=== PATIENT | female | born 1990 | race Caucasian/White ===

== ENCOUNTER → 2016-11-07 | Outpatient (CLI) | payer OTHER ==
[2016-11-07 12:08] LABS: CHCM 31.5; HCT 33.6 % (34.0-46.0); HDW 2.64; HGB 10.3 gm/dL (11.4-16.0); Hypochromasia Slight; MCH 26.3 pg (25.0-35.0); MCHC 30.6 g/dL (31.0-37.0); MCV 85.9 fL (80.0-100.0); RDW 15.2 % (11.5-15.5); WBC 11.2 k/uL (3.8-10.6)
== END | disposition home or self-care (01) ==
LOC: LABWHC1 10:36
PROVIDERS: ATTEND Obstetrics & Gynecology
DX: Z34.82 Encounter for supervision of other normal pregnancy, second trimester (principal); Z3A.00 Weeks of gestation of pregnancy not specified
CPT/HCPCS: 36415; 82950; 85027

== ENCOUNTER → 2016-12-26 | Outpatient (CLI) | payer OTHER ==
[2016-12-26 08:12] LABS: Bilirubin, Delta 0.6 mg/dL (0.0-0.2); Total Bilirubin 0.9 mg/dL (0.2-1.3); Total Protein 6.2 g/dL (6.3-8.2)
== END ==
LOC: LABWHC1 07:25
PROVIDERS: ATTEND Obstetrics & Gynecology
DX: O26.619 Liver and biliary tract disorders in pregnancy, unspecified trimester (principal)
CPT/HCPCS: 36415; 80076; 82239

== ENCOUNTER → 2017-01-15 | Outpatient (CLI) | payer OTHER ==
[2017-01-15 09:08] LABS: CH 24.7; CHCM 30.3; HCT 31.5 % (34.0-46.0); HDW 3.14; Hypochromasia Marked; MCH 25.9 pg (25.0-35.0); MCHC 31.8 g/dL (31.0-37.0); MCV 81.5 fL (80.0-100.0); Mean Platelet Volume 7.1; RBC 3.87 m/uL (3.80-5.40); RDW 14.6 % (11.5-15.5); WBC 15.7 k/uL (3.8-10.6)
== END | disposition home or self-care (01) ==
LOC: LABWHC1 08:32
PROVIDERS: ATTEND Obstetrics & Gynecology
DX: O26.619 Liver and biliary tract disorders in pregnancy, unspecified trimester (principal); Z3A.00 Weeks of gestation of pregnancy not specified
CPT/HCPCS: 36415; 84450; 84460; 84550; 85027

== ENCOUNTER 2017-01-24 13:20 | Outpatient (CLI) | payer OTHER ==
[2017-01-24 13:59] VITALS: BP 136/69; PULSE 112; RESP 20; TEMP 97.1
--- NOTE | 2017-01-27 20:43 | P.MSEPDOC ---
Presenting Problems - Arrival Data Date of Arrival on Unit: 01/24/17 Time of Arrival on Unit: 13:20 Mode of Transport: Ambulatory - Complaint OB-Reason for Admission/Chief Complaint: Rule Out PROM Medical History - Information : 3 Para: 1 Term: 1 : 0 Abortions: Spontaneous or Elective: 1 Number of Living Children: 1 - Gestational Age Expected Date of Delivery: 02/25/17 Gestational Age by DANE (wks/days): 35 Weeks and 6 Days - History Complications: Prior Comment: Scheduled for february 05 Review of Systems - Review of Systems Constitutional: No problems Breast: No problems ENT: No problems Cardiovascular: No problems Respiratory: No problems Gastrointestinal: No problems Genitourinary: No problems Musculoskeletal: No problems Neurological: No problems Skin: No problems Vital Signs - Temperature Temperature: 97.1 F Temperature Source: Skin - Pulse Brachial Pulse Rate: 112 Pulse Assessment Method: Automatic Cuff - Respirations Respiratory Rate: 20 Oxygen Delivery Method: Room Air O2 Sat by Pulse Oximetry: 98 - Blood Pressure Right Arm Blood Pressure: 136/69 Blood Pressure Mean: 91 Blood Pressure Source: Automatic Cuff Medical Screen Scoring (Pre) - Cervical Exam Dilation: 0 cm = 0 - Uterine Contractions Frequency: N/A - Maternal Vital Signs Maternal Temperature: N/A Maternal Blood Pressure: N/A Signs of Preeclampsia: N/A Maternal Respirations: N/A - Maternal Trauma Maternal Trauma: N/A - Assessment Baseline FHR: 145 Heart Rate - NICHD Category: Category I (Normal) = 0 NST: Reactive Position: N/A Station: N/A - Total Score Total Score (Pre): 0 Physician Notification (Pre) - Physician Notified Physician Notified Date: 01/24/17 Physician Notified Time: 14:13 Physician/Practitioner Notifed:: cecile Medical Screen Scoring (Post) - Cervical Exam Dilation: 0 cm = 0 - Uterine Contractions Frequency: N/A - Assessment Heart Rate - NICHD Category: Category I (Normal) = 0 - Total Score Total Score (Post): 0 - Post Treatment Level of Risk Post Treatment Level of Risk: Low (0-5) Physician Notification (Post) - Physician Notified Physician Notified Date: 01/24/17 Physician Notified Time: 14:16 Physician/Practitioner Notified:: cecile New Order Received: Yes - Notification Comment Comment: discharge home Disposition - Disposition OB Disposition: Discharge to home Discharge Date: 01/24/17 Discharge Time: 14:41 I agree with the RN Medical Screening Exam: Yes Risk & Benefit of care provided described in d/c instruction: Yes Diagnosis: FALSE LABOR AT OR AFTER 37 COMPLETED WEEKS OF GESTATION
== END 2017-01-24 14:42 | disposition home or self-care (01) ==
LOC: FBPOP 13:20
PROVIDERS: ATTEND Obstetrics & Gynecology
DX: O47.1 False labor at or after 37 completed weeks of gestation (principal); Z3A.35 35 weeks gestation of pregnancy
CPT/HCPCS: 59025; 84112; G0463; 99213

== ENCOUNTER 2017-02-05 05:06 | Inpatient (IN) | payer OTHER ==
[2017-01-31 14:20] VITALS: BMI 50.1
--- NOTE | 2017-02-04 16:22 | P.HPOB ---
History of Present Illness H&P Date: 02/04/17 Chief Complaint: repeat with TL 26 year old presents at 37 weeks 2 days for repeat low transverse c- section with tubal ligation. Pt has gestational diabetes A2 as well as cholestasis of . She is being delivered at 37 weeks due to the cholestasis. Review of Systems All systems: negative Constitutional: Denies chills, Denies fever Eyes: denies blurred vision, denies pain Ears, nose, mouth and throat: Denies headache, Denies sore throat Cardiovascular: Denies chest pain, Denies shortness of breath Respiratory: Denies cough Gastrointestinal: Denies abdominal pain, Denies diarrhea, Denies nausea, Denies vomiting Genitourinary: Denies dysuria, Denies hematuria Musculoskeletal: Denies myalgias Integumentary: Denies pruritus, Denies rash Neurological: Denies numbness, Denies weakness Psychiatric: Denies anxiety, Denies depression Endocrine: Denies fatigue, Denies weight change Past Medical History Past Medical History: Asthma, Diabetes Mellitus, GERD/Reflux Additional Past Medical History / Comment(s): GESTATIONAL DIABETES., SCOLIOSIS, STATES SCRATCH [place] ON LEGS FROM SCRATCHING. History of Any Multi-Drug Resistant Organisms: None Reported, MRSA Date of last positivie culture/infection: 2010 MDRO Source:: MRSA on the Back Past Surgical History: Section, Tonsillectomy Additional Past Surgical History / Comment(s): MRSA REMOVED FROM BACK. Past Anesthesia/Blood Transfusion Reactions: No Reported Reaction Past Psychological History: ADD/ADHD, Bipolar Smoking Status: Former smoker Past Alcohol Use History: None Reported, Rare Additional Past Alcohol Use History / Comment(s): SMOKED FOR 1 YEAR FROM 2008 - 2009, 1-2 CIGARETTES PER DAY., Past Drug Use History: None Reported - Past Family History Father Family Medical History: Diabetes Mellitus Medications and Allergies Home Medications Medication Instructions Recorded Confirmed Type Albuterol Inhaler [Ventolin Hfa 1 - 2 puff INHALATION DIRECTED 01/17/1701/31 History Inhaler] PRN Insulin Glargine [Lantus] 24 unit SQ QAM 01/17/17 01/31/17 History Insulin Glargine [Lantus] 36 unit SQ HS 01/17/17 01/31/17 History Insulin Aspart [NovoLOG Flexpen] 12 units SQ BID-W/MEALS 01/31/17 01/31/17 History Insulin Aspart [NovoLOG Flexpen] 16 units SQ AC-SUPPER 01/31/17 01/31/17 History Pediatric Multivitamin Comb#30 1 each PO DAILY 01/31/17 01/31/17 History [Multivitamin Children's Gummies] Tylenol 200 Mg 200 mg PO BID PRN 01/31/17 History Ursodiol 300 mg PO TID-W/MEALS 01/31/17 01/31/17 History Allergies Allergy/AdvReac Type Severity Reaction Status Date / Time methocarbamol [From Robaxin] AdvReac Rapid Verified 01/31/17 13:50 Heart Rate tramadol AdvReac Rapid Verified 01/31/17 13:50 Heart Rate Exam Osteopathic Statement: *. No significant issues noted on an osteopathic structural exam other than those noted in the History and Physical/Consult. HEart: RRR Lungs: CTAB ABdomen: soft, nontender Extremeties: neg nicole's Assessment and Plan (1) Previous section Status: Acute (2) Gestational diabetes mellitus, class A2 Status: Acute (3) Cholestasis during Status: Acute (4) Family planning Status: Acute Plan: 1. repeat low transverse with tubal ligation
[2017-02-05] MEDS ORDERED: ceFAZolin 2 GM in SODIUM CHLORIDE 0.9% 100 ML IVPB ONE (05:24)
[2017-02-05] MEDS ORDERED: CITRIC ACID-SODIUM CITRATE 15 ML CUP PO ONE (05:24)
[2017-02-05 05:49] LABS: Glucose,Whole Blood 101 mg/dL (75-99)
[2017-02-05 05:59] LABS: Basophils % (A) 0 %; CH 24.2; CHCM 30.8; Eosinophils # (A) 0.2 k/uL (0-0.7); Eosinophils % (A) 2 %; HCT 30.1 % (34.0-46.0); HDW 3.25; HGB 9.5 gm/dL (11.4-16.0); Hypochromasia Marked; Luc # (Auto) 0.21; Luc % (Auto) 2; Lymphocytes # (A) 2.3 k/uL (1.0-4.8); Lymphocytes % (A) 17 %; MCH 24.9 pg (25.0-35.0); MCHC 31.6 g/dL (31.0-37.0); MCV 78.7 fL (80.0-100.0); Mean Platelet Volume 7.3; Monocytes # (A) 0.6 k/uL (0-1.0); Monocytes % (A) 4 %; Neutrophils # (A) 10.5 k/uL (1.3-7.7); Neutrophils % (A) 76 %; RBC 3.83 m/uL (3.80-5.40); RDW 15.3 % (11.5-15.5); WBC 13.9 k/uL (3.8-10.6); WBC (Perox) 14.21
[2017-02-05] MEDS: LACTATED RINGERS 1,000 ML IV SCH ×4 (07:21→17:16)
[2017-02-05] MEDS ORDERED: ONDANSETRON 4 MG/2 ML VIAL ONE (08:03)
[2017-02-05] MEDS ORDERED: LACTATED RINGERS 1,000 ML BAG IV ONE (08:03)
[2017-02-05] MEDS ORDERED: OXYTOCIN 10 UNIT/ML 1 ML VIAL ONE (08:03)
[2017-02-05] MEDS ORDERED: ePHEDrine 50 MG/ML 1 ML AMP ONE (08:03)
[2017-02-05] MEDS ORDERED: MORPHINE SULFATE (PF) 0.3 MG/0.3 ML SYR ONE (08:03)
[2017-02-05] MEDS ORDERED: KETOROLAC 30 MG/ML 1 ML VIAL ONE (08:03)
[2017-02-05] MEDS ORDERED: MIDAZOLAM 2 MG/2 ML VIAL ONE (08:03)
[2017-02-05 08:22] LABS: Hemoglobin A1C 6.5 % (4.2-6.1)
[2017-02-05] MEDS ORDERED: diphenhydrAMINE 50 MG/ML 1 ML VIAL IVP PRN ×2 (08:38)
[2017-02-05] MEDS ORDERED: diphenhydrAMINE 50 MG CAP PO PRN (08:38)
[2017-02-05] MEDS ORDERED: Acetaminophen-Codeine 300-30mg TAB PO PRN (08:38)
[2017-02-05] MEDS ORDERED: diphenhydrAMINE 25 MG CAP PO PRN (08:38)
[2017-02-05] MEDS ORDERED: METOCLOPRAMIDE 5 MG/ML 2 ML VIAL IVP PRN (08:38)
[2017-02-05] MEDS ORDERED: ZOLPIDEM 5 MG TAB PO PRN (08:38)
[2017-02-05] MEDS ORDERED: SIMETHICONE 80 MG CHEWABLE PO PRN (08:38)
[2017-02-05] MEDS ORDERED: ONDANSETRON 4 MG/2 ML VIAL IVP PRN (08:38)
[2017-02-05] MEDS ORDERED: NALOXONE 0.4 MG/ML 1 ML VIAL IV PRN (08:38)
[2017-02-05] MEDS ORDERED: LANOLIN CREAM 5 GM TUBE TOPICAL PRN (08:38)
[2017-02-05] MEDS ORDERED: ACETAMINOPHEN TAB 325 MG TAB PO PRN (08:38)
--- NOTE | 2017-02-05 08:43 | P.OP ---
Date of Procedure: 02/05/17 Preoperative Diagnosis: 1. at 37 weeks and 2 days 2. Cholestasis of 3. Gestational diabetes A2 4. Previous 5. Family planning Postoperative Diagnosis: 1. at 37 weeks and 2 days 2. Cholestasis of 3. Gestational diabetes A2 4. Previous 5. Family planning Procedure(s) Performed: Repeat low transverse with tubal ligation Anesthesia: spinal Surgeon: Lili Dent Motion Study Engineer #1: Elise Bueno Estimated Blood Loss (ml): 800 IV fluids (ml): 700 Urine output (ml): 100 Pathology: other (Placenta) Condition: stable Disposition: floor Operative Findings: Viable female, Apgars 8, 9, weight 6 lbs. 9 oz. normal uterus tubes and ovaries. Description of Procedure: Patient was taken to the operating room where spinal anesthesia was found be adequate. She was prepped and draped in normal sterile fashion in dorsal supine position with a leftward tilt. Pfannenstiel skin incision was made the scalpel and carried through to the underlying layer of fascia with the scalpel. Fascia was incised in midline and carried bilaterally with the Coates scissors. The superior aspect of the fascial incision was grasped with Susan clamps elevated and the underlying rectus muscles dissected off with the Coates's. Attention was then turned to inferior aspect of same incision which in a similar fashion was grasped tented up and the underlying rectus muscles dissected off with the Coates's. The rectus muscles were the midline and the peritoneum was identified tented up and entered sharply with the scalpel. The incision was extended superiorly and inferiorly with good visualization of the bladder. The bladder blade was inserted and the vesicouterine peritoneum was incised the Metzenbaums then carried bilaterally and bladder flap created digitally. A low transverse incision was then made on the uterus with the scalpel. This was carried bilaterally and digital manner. 's head delivered atraumatically, nose and mouth bulb suctioned, cord clamped and cut, handed off to waiting nurses. Apgars 8,9, weight 6 lbs. 9 oz. Placenta delivered manually, intact with three-vessel cord. The uterus is exteriorized and cleared of all clots and debris. The uterine incision was closed with 0 Vicryl in a running locked fashion. Second layer of the same sutures used in imbricating fashion to obtain excellent hemostasis. Both ovaries and tubes appeared normal. The left fallopian tube was grasped with a hemostat and a window was made in the mesosalpinx with the Bovie. The left fallopian tube was doubly ligated a section was removed. The pedicles were cauterized with the Bovie. The right fallopian tube was grasped with a hemostat and a window was made in the mesosalpinx with the Bovie. The right fallopian tube was doubly ligated and a section was removed. The pedicles were cauterized with the Bovie. The uterus was placed back into the abdomen. The peritoneum was reapproximated using 2-0 Vicryl in a running fashion. The muscles were reapproximated using 2-0 Vicryl in interrupted fashion. The fascia was reapproximated using 0 Vicryl in a running fashion. The subcutaneous tissues closed with 3-0 Vicryl running fashion. The skin was closed marvin. Patient tolerated the procedure well, sponge and instrument counts were correct times 2 and she was taken to the recovery room in stable condition.
[2017-02-05] MEDS ORDERED: OXYTOCIN 30 UNITS/500 ML NS 30 UNIT in SALINE 1 500ML.BAG IV SCH (08:45)
[2017-02-05] MEDS ORDERED: MEASLES-MUMPS-RUBELLA VACC/PF 12,500 UNIT/0.5 ML VIAL SQ ONE (12:17)
[2017-02-05] MEDS: KETOROLAC 30 MG/ML 1 ML VIAL IVP PRN ×2 (14:04→20:07)
[2017-02-05] MEDS: SENNOSIDES-DOCUSATE SODIUM 1 EACH TAB PO SCH (21:30)
[2017-02-06] MEDS: KETOROLAC 30 MG/ML 1 ML VIAL IVP PRN ×2 (03:47→11:10)
[2017-02-06 08:04] LABS: Basophils % (A) 0 %; CH 23.9; CHCM 30.1; Eosinophils # (A) 0.2 k/uL (0-0.7); Eosinophils % (A) 2 %; HCT 27.4 % (34.0-46.0); HGB 8.5 gm/dL (11.4-16.0); Hypochromasia Marked; Luc # (Auto) 0.21; Luc % (Auto) 2; Lymphocytes # (A) 2.1 k/uL (1.0-4.8); Lymphocytes % (A) 20 %; MCH 24.7 pg (25.0-35.0); MCV 79.6 fL (80.0-100.0); Monocytes # (A) 0.4 k/uL (0-1.0); Monocytes % (A) 3 %; Neutrophils # (A) 7.7 k/uL (1.3-7.7); Neutrophils % (A) 73 %; RBC 3.44 m/uL (3.80-5.40); RDW 15.4 % (11.5-15.5); WBC 10.6 k/uL (3.8-10.6); WBC (Perox) 11.01
[2017-02-06] MEDS: SENNOSIDES-DOCUSATE SODIUM 1 EACH TAB PO SCH ×2 (08:42→19:43)
--- NOTE | 2017-02-06 09:05 | P.PNOBGPC ---
Subjective - Subjective Principal diagnosis: Status post repeat low transverse with tubal ligation postop day1 Interval history: Patient seen and examined. Denies nausea, vomiting, fever, chills, chest pain, soreness of breath or calf pain. She was seen ambulating around her room without difficulty and she states she is voiding without problem. Passing flatus and tolerating a regular diet. Patient reports: Reports appetite normal, Reports voiding normally, Reports pain well controlled, Reports ambulating normally : doing well Objective - Vital Signs Latest vital signs: Vital Signs Temp Pulse Resp BP BP Pulse Ox 02/06/17 08:00 98.3 F 103 H 16 96/54 02/06/17 04:00 98.6 F 88 17 103/54 99 02/06/17 02:00 16 L 02/05/17 23:58 98.3 F 81 16 97/42 97 02/05/17 22:00 18 L 02/05/17 20:00 97.4 F L 84 18 90/60 97 02/05/17 16:00 98.9 F 81 16 92/57 98 02/05/17 13:15 98.4 F 90 16 102/50 95 02/05/17 11:00 96.8 F L 93 16 103/59 02/05/17 10:36 88 16 93/51 02/05/17 10:13 96.9 F L 82 16 97/50 02/05/17 09:39 90 16 94/49 97 02/05/17 09:16 100 18 96/51 99 Intake and Output 02/05/17 02/06/17 02/06/17 22:59 06:59 14:59 Output Total 475 200 Balance -475 -200 Output: Urine 475 200 Uretheral (Shea) 275 Other: Voiding Method Toilet # Voids 1 1 - Exam Lungs: bilateral: normal Chest: Normal S1, Normal S2 Extremities: Present: normal Abdomen: Present: normal appearance, soft. Absent: distention, tenderness Incision: Present: normal, dry, intact Uterus: Present: normal, firm - Labs Labs: Abnormal Lab Results - Last 24 Hours (Table) 02/06/17 Range/Units 07:52 RBC 3.44 L (3.80-5.40) m/uL Hgb 8.5 L (11.4-16.0) gm/dL Hct 27.4 L (34.0-46.0) % MCV 79.6 L (80.0-100.0) fL MCH 24.7 L (25.0-35.0) pg Assessment and Plan (1) Previous section Current Visit: Yes Status: Resolved Code(s): Z98.891 - HISTORY OF UTERINE SCAR FROM PREVIOUS SURGERY SNOMED Code(s): 861120211 (2) Gestational diabetes mellitus, class A2 Current Visit: Yes Status: Resolved Code(s): O24.414 - GESTATIONAL DIABETES IN , INSULIN CONTROLLED SNOMED Code(s): 75537737 (3) Cholestasis during Current Visit: Yes Status: Resolved Code(s): O26.619 - LIVER AND BILIARY TRACT DISORD IN , UNSP TRIMESTER; K83.1 - OBSTRUCTION OF BILE DUCT SNOMED Code(s): 833718131 (4) Family planning Current Visit: Yes Status: Resolved Code(s): Z30.09 - ENCOUNTER FOR OT GENERAL CNSL AND ADVICE ON CONTRACEPTION SNOMED Code(s): 00582704 (5) Status post repeat low transverse section Current Visit: Yes Status: Acute Code(s): Z98.891 - HISTORY OF UTERINE SCAR FROM PREVIOUS SURGERY SNOMED Code(s): 413711253 (6) Status post tubal ligation at time of delivery, current hosp Narrative/Plan: 1. Increase ambulation 2. Pain control Current Visit: Yes Status: Acute Code(s): O80 - ENCOUNTER FOR FULL-TERM UNCOMPLICATED DELIVERY; Z30.2 - ENCOUNTER FOR STERILIZATION SNOMED Code(s): 917041643
--- NOTE | 2017-02-06 10:21 | P.PN ---
Progress Note - Text 0749 Anesthesia POD 1. Patient is status post section and tubal ligation under spinal anesthesia with intra-thecal preservative free morphine 300 g. Minimal pruritus, good post-op analgesia, and no headache or other complication.
[2017-02-06] MEDS: Acetaminophen-Codeine 300-30mg TAB PO PRN ×2 (13:39→19:42)
[2017-02-06] MEDS: IBUPROFEN 600 MG TAB PO PRN ×2 (17:01→23:08)
[2017-02-06] MEDS: LACTATED RINGERS 1,000 ML IV SCH (22:03)
[2017-02-07] MEDS: Acetaminophen-Codeine 300-30mg TAB PO PRN ×3 (03:26→23:35)
[2017-02-07] MEDS: SENNOSIDES-DOCUSATE SODIUM 1 EACH TAB PO SCH ×2 (08:23→19:44)
[2017-02-07] MEDS: IBUPROFEN 600 MG TAB PO PRN ×2 (08:24→19:44)
--- NOTE | 2017-02-07 09:33 | P.PNOBGPC ---
Subjective - Subjective Principal diagnosis: Status post repeat low transverse with tubal ligation POD #2 Interval history: Patient seen and examined. Denies nausea, vomiting, fever, chills, chest pain, shortness of breath or calf pain Patient reports: Reports appetite normal, Reports voiding normally, Reports pain well controlled, Reports ambulating normally Cornell: doing well Objective - Vital Signs Latest vital signs: Vital Signs Temp Pulse Resp BP BP Pulse Ox 02/07/17 08:00 97.9 F 96 18 121/69 97 02/07/17 00:00 98.0 F 94 17 107/59 98 02/06/17 16:00 97.4 F L 87 16 98/54 - Exam Lungs: bilateral: normal Chest: Normal S1, Normal S2 Extremities: Present: normal Abdomen: Present: normal appearance, soft. Absent: distention, tenderness Incision: Present: normal, dry, intact Uterus: Present: normal, firm Assessment and Plan (1) Previous section Current Visit: Yes Status: Resolved Code(s): Z98.891 - HISTORY OF UTERINE SCAR FROM PREVIOUS SURGERY SNOMED Code(s): 218162045 (2) Gestational diabetes mellitus, class A2 Current Visit: Yes Status: Resolved Code(s): O24.414 - GESTATIONAL DIABETES IN , INSULIN CONTROLLED SNOMED Code(s): 13844907 (3) Cholestasis during Current Visit: Yes Status: Resolved Code(s): O26.619 - LIVER AND BILIARY TRACT DISORD IN , UNSP TRIMESTER; K83.1 - OBSTRUCTION OF BILE DUCT SNOMED Code(s): 300948042 (4) Family planning Current Visit: Yes Status: Resolved Code(s): Z30.09 - ENCOUNTER FOR OT GENERAL CNSL AND ADVICE ON CONTRACEPTION SNOMED Code(s): 35196624 (5) Status post repeat low transverse section Current Visit: Yes Status: Acute Code(s): Z98.891 - HISTORY OF UTERINE SCAR FROM PREVIOUS SURGERY SNOMED Code(s): 604308540 (6) Status post tubal ligation at time of delivery, current hosp Narrative/Plan: 1. Continue postoperative care Current Visit: Yes Status: Acute Code(s): O80 - ENCOUNTER FOR FULL-TERM UNCOMPLICATED DELIVERY; Z30.2 - ENCOUNTER FOR STERILIZATION SNOMED Code(s): 259105331
--- NOTE | 2017-02-08 07:25 | P.DS ---
Providers Date of admission: 02/05/17 05:06 Expected date of discharge: 02/08/17 Attending physician: Lili Dent Primary care physician: Bret Hussein - Discharge Diagnosis(es) (1) Previous section Current Visit: Yes Status: Resolved (2) Gestational diabetes mellitus, class A2 Current Visit: Yes Status: Resolved (3) Cholestasis during Current Visit: Yes Status: Resolved (4) Family planning Current Visit: Yes Status: Resolved (5) Status post repeat low transverse section Current Visit: Yes Status: Acute (6) Status post tubal ligation at time of delivery, current hosp Current Visit: Yes Status: Acute Hospital Course: Pt presented for RLTCS with TL. She underwent this procedure without complication. HEr postop course was uneventful. Denies N/V, F/C, CP, SOB, calf pain. Incision is C/D/I. Tolerating reg diet, passing flatus, voiding and ambulating. Patient will be discharged home postoperative day #3 in stable condition to follow-up with me in one week. Plan - Discharge Summary New Discharge Prescriptions: Acetaminophen-Codeine 300-30mg [Tylenol #3] 2 tab PO Q6H PRN #30 tablet PRN Reason: Pain Ibuprofen [Motrin] 600 mg PO Q6HR PRN #30 tab PRN Reason: Mild Pain Or Fever >= 100.5 Discharge Medication List Albuterol Inhaler [Ventolin Hfa Inhaler] 1 - 2 puff INHALATION DIRECTED PRN 01/17/17 [History] Insulin Glargine [Lantus] 24 unit SQ QAM 01/17/17 [History] Insulin Glargine [Lantus] 36 unit SQ HS 01/17/17 [History] Insulin Aspart [NovoLOG Flexpen] 12 units SQ BID-W/MEALS 01/31/17 [History] Insulin Aspart [NovoLOG Flexpen] 16 units SQ AC-SUPPER 01/31/17 [History] Pediatric Multivitamin Comb#30 [Multivitamin Children's Gummies] 1 each PO DAILY 01/31/17 [History] Ursodiol 300 mg PO TID-W/MEALS 01/31/17 [History] Acetaminophen-Codeine 300-30mg [Tylenol #3] 2 tab PO Q6H PRN #30 tablet [Rx] Ibuprofen [Motrin] 600 mg PO Q6HR PRN #30 tab 02/08/17 [Rx] Follow up Appointment(s)/Referral(s): Lili Dent DO [Doctor of Osteopathic Medicine] - 1 Week Discharge Disposition: HOME SELF-CARE
[2017-02-08 08:05] VITALS: BP 130/67; PULSE 93; RESP 20; TEMP 98.5
[2017-02-08] MEDS: SENNOSIDES-DOCUSATE SODIUM 1 EACH TAB PO SCH (08:06)
[2017-02-08] MEDS: Acetaminophen-Codeine 300-30mg TAB PO PRN (08:07)
== END 2017-02-08 11:25 | disposition home or self-care (01) | DRG 765 ==
LOC: 4FBP 05:06
PROVIDERS: ADMIT Obstetrics & Gynecology; ATTEND Obstetrics & Gynecology
PROC: 0UB70ZZ Excision of Bilateral Fallopian Tubes, Open Approach (ICD-10-PCS; 2017-02-05)
PROC: 3E0134Z Introduction of Serum, Toxoid and Vaccine into Subcutaneous Tissue, Percutaneous Approach (ICD-10-PCS; 2017-02-05)
PROC: 10D00Z1 Extraction of Products of Conception, Low, Open Approach (ICD-10-PCS; principal; 2017-02-05 08:00)
DX: O26.62 Liver and biliary tract disorders in childbirth (principal); K83.1 Obstruction of bile duct; O24.424 Gestational diabetes mellitus in childbirth, insulin controlled; M41.9 Scoliosis, unspecified; O34.211 Maternal care for low transverse scar from previous cesarean delivery; Z23 Encounter for immunization; Z30.2 Encounter for sterilization; Z3A.37 37 weeks gestation of pregnancy; Z37.0 Single live birth; O99.62 Diseases of the digestive system complicating childbirth; K21.9 Gastro-esophageal reflux disease without esophagitis; J45.909 Unspecified asthma, uncomplicated; O99.52 Diseases of the respiratory system complicating childbirth; O99.344 Other mental disorders complicating childbirth; F90.9 Attention-deficit hyperactivity disorder, unspecified type; Z86.14 Personal history of Methicillin resistant Staphylococcus aureus infection; Z87.891 Personal history of nicotine dependence; Z83.3 Family history of diabetes mellitus; Z79.4 Long term (current) use of insulin; Z79.899 Other long term (current) drug therapy
CPT/HCPCS: 83036; 85025; 86850; 86900; 86901; 88302; 88307; 90471; 90707

== ENCOUNTER → 2017-03-07 | Outpatient (CLI) | payer OTHER ==
--- NOTE | 2017-03-07 09:48 | XR ---
EXAMINATION TYPE: XR scoliosis survey DATE OF EXAM ORDERED: 03/07/2017 HISTORY: M41.9 scoliosis. COMPARISON: None. FINDINGS: There is a mild S-shaped scoliosis, convex to the right in the thoracic region and to the left in the lumbar region. De León's angle subtended 9 degrees in the thoracic region and 60 degrees in the lumbar region. No segmentation defects are seen. IMPRESSION: IDIOPATHIC SCOLIOSIS.
== END | disposition home or self-care (01) ==
LOC: RADXRMAIN 09:05
PROVIDERS: ATTEND Family Medicine
DX: M41.25 Other idiopathic scoliosis, thoracolumbar region (principal)
CPT/HCPCS: 72082

== ENCOUNTER → 2017-12-09 | Outpatient (CLI) | payer OTHER ==
--- NOTE | 2017-12-09 08:50 | US ---
EXAMINATION TYPE: US abdomen complete DATE OF EXAM: 12/09/2017 COMPARISON: US 2011 CLINICAL HISTORY: R94.5 Abnormal Liver function test. Abnormal results of liver function studies, pat ient states no symptoms EXAM MEASUREMENTS: Liver Length: 17.9 cm Gallbladder Wall: 0.2 cm CBD: 0.5 cm Spleen: 10.9 cm Right Kidney: 10.8 x 5.8 x 5.7 cm Left Kidney: 11.1 x 5.8 x 5.1 cm Difficult and limited study due to patient body habitus Pancreas: visualized portions wnl, limited by overlying midline bowel gas Liver: somewhat heterogeneous echogenicity, scanned intercostally, limited by rib shadowing Gallbladder: multiple small mobile echogenic foci, wall measures wnl Evidence for sonographic Jones's sign: no CBD: wnl Spleen: wnl Right Kidney: wnl Left Kidney: visualized portions wnl, limited by rib shadowing Upper IVC: wnl Abd Aorta: visualized portions wnl, distal limited by overlying midline bowel gas Exam noted suboptimal secondary to patient's large body habitus. The visualized liver is slightly heterogeneous. The intrahepatic portion of the IVC and visualized a bdominal aorta are within normal limits. There are shadowing mobile gallstones. There is no perichole cystic fluid or abnormal gallbladder wall thickening Common bile duct is unremarkable. The visualiz ed portions of the pancreas are homogenous. Portions are obscured by overlying bowel gas. The spleen is unremarkable. Kidneys are symmetric and free of hydronephrosis. No renal lesions are seen. IMPRESSION: No worrisome intrahepatic mass or intrahepatic ductal dilatation is seen.
== END | disposition home or self-care (01) ==
LOC: RADUSWWP 07:04
PROVIDERS: ATTEND Internal Medicine Geriatric Medicine
DX: R94.5 Abnormal results of liver function studies (principal)
CPT/HCPCS: 76700

== ENCOUNTER 2018-06-17 15:31 | Inpatient (IN) | payer MEDICAID, OTHER ==
--- NOTE | 2018-06-17 16:04 | ED ---
General Adult HPI - General Chief complaint: Psychiatric Symptoms Stated complaint: suicidal Time Seen by Provider: 06/17/18 15:41 Source: patient, RN notes reviewed Mode of arrival: ambulatory Limitations: no limitations - History of Present Illness Initial comments: 27-year-old female presents to the emergency department for a chief complaint of suicidal thoughts 1.5 days. Friend at bedside. Patient states she has felt depressed for 1.5 days and been thinking about jumping in front of traffic. She states that when she goes home her plan of suicide involves using a knife. Patient states she has had past suicide attempts 12 years ago including overdose and hanging herself. Patient has a history of depression for which she takes Abilify. Patient states she saw a counselor today who recommended she come be evaluated in the emergency department. Patient denies homicidal thoughts or thoughts of harming others. Patient has no other complaints at this time including shortness of breath, chest pain, abdominal pain, nausea or vomiting, headache, or visual changes. - Related Data Home Medications Medication Instructions Recorded Confirmed ARIPiprazole [Abilify] 10 mg PO DAILY 06/17/18 06/17/18 Acetaminophen Tab [Tylenol Tab] 325 mg PO DAILY 06/17/18 06/17/18 Ergocalciferol (Vitamin D2) 50,000 unit PO Q14D 06/17/18 06/17/18 [Vitamin D2] Ferrous Sulfate [Feosol] 325 mg PO DAILY 06/17/18 06/17/18 Ibuprofen [Motrin] 600 mg PO DAILY 06/17/18 06/17/18 Melatonin 10 mg PO HS 06/17/18 06/17/18 Phentermine HCl [Adipex-P] 37.5 mg PO DAILY 06/17/18 06/17/18 metFORMIN HCL 1,000 mg PO BID 06/17/18 06/17/18 Allergies Allergy/AdvReac Type Severity Reaction Status Date / Time methocarbamol [From Robaxin] AdvReac Rapid Verified 06/17/18 16:26 Heart Rate tramadol AdvReac Rapid Verified 06/17/18 16:26 Heart Rate Review of Systems ROS Statement: Those systems with pertinent positive or pertinent negative responses have been documented in the HPI. ROS Other: All systems not noted in ROS Statement are negative. Past Medical History Past Medical History: Asthma Additional Past Medical History / Comment(s): Obstetric history: This is her first . She has had care with me since 7 weeks. EDC is by a 7 week US. AB+, abs neg, Rub Imm, RPR NR, HEp B neg, HIV NR. Abnormal 1hr but normal 3hrGTT. normal anatomy US. GBS neg. Pseudotumor History of Any Multi-Drug Resistant Organisms: MRSA Date of last positivie culture/infection: 2011 MDRO Source:: MRSA on the Back Past Surgical History: Section, Tonsillectomy Additional Past Surgical History / Comment(s): MRSA REMOVED FROM BACK. Past Anesthesia/Blood Transfusion Reactions: No Reported Reaction Past Psychological History: ADD/ADHD, Bipolar Smoking Status: Never smoker Past Alcohol Use History: Rare Past Drug Use History: None Reported - Past Family History Father Family Medical History: Diabetes Mellitus General Exam Limitations: no limitations General appearance: alert, in no apparent distress Head exam: Present: atraumatic, normocephalic, normal inspection Eye exam: Present: normal appearance, PERRL, EOMI. Absent: scleral icterus, conjunctival injection, periorbital swelling ENT exam: Present: normal exam, mucous membranes moist Neck exam: Present: normal inspection, full ROM. Absent: tenderness, meningismus, lymphadenopathy Respiratory exam: Present: normal lung sounds bilaterally. Absent: respiratory distress, wheezes, rales, rhonchi, stridor Cardiovascular Exam: Present: regular rate, normal rhythm, normal heart sounds. Absent: systolic murmur, diastolic murmur, rubs, gallop, clicks Neurological exam: Present: alert, oriented X3, CN II-XII intact Psychiatric exam: Present: flat affect (somewhat flat affect, but patient cooperative ), suicidal ideation. Absent: homicidal ideation Course Vital Signs 06/17/18 15:35 Temperature 97.7 F Pulse Rate 95 Respiratory 15 Rate Blood Pressure 111/85 O2 Sat by Pulse 100 Oximetry Medical Decision Making - Medical Decision Making 27-year-old female with a chief complaint of suicidal thoughts 1.5 days to the emergency department. Patient does have a past history of depression for which she takes Abilify. Patient does have a plan of suicide including jumping in front of traffic. She has h/o past suicidal attempts 12 years ago. No other medical complaints. Patient was evaluated by EPS who recommended admission. Patient did sign herself in to the psychiatric unit. - Lab Data Lab Results 06/17/18 Range/Units 16:24 Urine Opiates Screen Not Detected (NotDetected) Ur Oxycodone Screen Not Detected (NotDetected) Urine Methadone Screen Not Detected (NotDetected) Ur Propoxyphene Screen Not Detected (NotDetected) Ur Barbiturates Screen Not Detected (NotDetected) U Tricyclic Antidepress Not Detected (NotDetected) Ur Phencyclidine Scrn Not Detected (NotDetected) Ur Amphetamines Screen Detected H (NotDetected) U Methamphetamines Scrn Not Detected (NotDetected) U Benzodiazepines Scrn Not Detected (NotDetected) Urine Cocaine Screen Not Detected (NotDetected) U Marijuana (THC) Screen Not Detected (NotDetected) Disposition Clinical Impression: Suicidal ideation Disposition: ADMITTED IP TO THIS HOSP Is patient prescribed a controlled substance at d/c from ED?: No Time of Disposition: 18:10
[2018-06-17 17:03] LABS: Amphetamine Screen,Urine Detected (NotDetected); Barbiturate Screen,Urine Not Detected (NotDetected); Benzodiazepines Screen,Urine Not Detected (NotDetected); Cocaine Screen,Urine Not Detected (NotDetected); Methadone Screen, Urine Not Detected (NotDetected); Opiate Screen,Urine Not Detected (NotDetected); Oxycodone Screen, Urine Not Detected (NotDetected); Phencyclidine Screen,Urine Not Detected (NotDetected); Tricyclic Antidepressant,Urine Not Detected (NotDetected); Urn Cannabinoid Scrn Not Detected (NotDetected)
[2018-06-17] MEDS ORDERED: ACETAMINOPHEN TAB 325 MG TAB PO PRN (18:37)
[2018-06-17] MEDS ORDERED: LORazepam 1 MG TAB PO PRN (18:37)
[2018-06-17] MEDS: MELATONIN 5 MG TABLET PO SCH (20:43)
[2018-06-17 20:44] LABS: Appearance,Urine Cloudy (Clear); Bacteria,Urine Rare /hpf; Bilirubin,Urine Negative (Negative); Blood,Urine Negative (Negative); Color,Urine Yellow; Glucose,Urine (UA) Negative (Negative); Ketones,Urine Negative (Negative); Leukocyte Esterase,Urine Small (Negative); Mucus,Urine Few /hpf; Nitrite,Urine Negative (Negative); PH, Urine 5.5 (5.0-8.0); Protein,Urine Trace (Negative); RBC,Urine <1 /hpf (0-5); Specific Gravity,Urine 1.028 (1.001-1.035); Squamous Epithelial Cell,Urine 5 /hpf (0-4); Urobilinogen,Urine <2.0 mg/dL (<2.0); WBC,Urine 4 /hpf (0-5)
[2018-06-18 06:08] LABS: Glucose,Whole Blood 106 mg/dL (75-99)
[2018-06-18] MEDS: FERROUS SULFATE 325 MG TAB PO SCH (07:39)
[2018-06-18] MEDS: IBUPROFEN 600 MG TAB PO SCH (07:39)
[2018-06-18] MEDS: metFORMIN 500 MG TAB PO SCH ×2 (07:40→16:47)
[2018-06-18] MEDS: ARIPiprazole 10 MG TAB PO SCH (07:40)
[2018-06-18 09:47] LABS: Anisocytosis Slight; Basophils % (A) 0 %; Eosinophils # (A) 0.2 k/uL (0-0.7); Eosinophils % (A) 2 %; HCT 35.2 % (34.0-46.0); HGB 10.6 gm/dL (11.4-16.0); Hypochromasia Marked; Lymphocytes # (A) 1.5 k/uL (1.0-4.8); Lymphocytes % (A) 18 %; MCH 24.7 pg (25.0-35.0); MCHC 30.2 g/dL (31.0-37.0); MCV 81.6 fL (80.0-100.0); Mean Platelet Volume 7.2; Monocytes # (A) 0.3 k/uL (0-1.0); Monocytes % (A) 4 %; Neutrophils # (A) 6.4 k/uL (1.3-7.7); Neutrophils % (A) 76 %; Platelet Count 337 k/uL (150-450); RBC 4.32 m/uL (3.80-5.40); RDW 16.1 % (11.5-15.5); WBC 8.5 k/uL (3.8-10.6)
[2018-06-18 10:34] LABS: ALT 24 U/L (9-52); AST 16 U/L (14-36); Albumin 3.4 g/dL (3.5-5.0); Alkaline Phosphatase 108 U/L (38-126); Anion Gap 7 mmol/L; Blood Urea Nitrogen 18 mg/dL (7-17); Carbon Dioxide 26 mmol/L (22-30); Chloride 106 mmol/L (98-107); Cholesterol 165 mg/dL (<200); Glucose 149 mg/dL (74-99); HDL Cholesterol 35 mg/dL (40-60); LDL Cholesterol,Calculated 91 mg/dL (0-99); Potassium 4.5 mmol/L (3.5-5.1); Sodium 139 mmol/L (137-145); Total Bilirubin 0.3 mg/dL (0.2-1.3); Total Protein 6.1 g/dL (6.3-8.2); Triglycerides 195 mg/dL (<150)
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
--- NOTE | 2018-06-18 15:14 | P.MDCNMH ---
History of Present Illness H&P Date: 06/18/18 Chief Complaint: Suicidal ideation This is a 27-year-old female patient of . past medical history of mild intermittent asthma, chronic anemia, diabetes mellitus type 2, gestational diabetes, ADHD, bipolar. Patient states that she has chronic depression but it became very worse the past 2 days. She does not have any trigger but she came into emergency center for evaluation of suicidal ideation with plan to jump in front of traffic. Patient was evaluated in the emergency center and admitted to the mental health unit. Patient has been resumed on metformin. She has been seen by psychiatry and Lamictal has been added to her Abilify. Patient is history that she has had history of suicide attempt 12 years ago when she found that she was adopted and she needed the world. She overdosed on sleeping pills and diet pills and tried to hang herself. She states that this morning she woke up and she was feeling fine and she was missing her family wanted to go home. Review of Systems All systems: negative Constitutional: Denies chills, Denies fever Eyes: denies blurred vision, denies pain Ears, nose, mouth and throat: Denies headache, Denies sore throat Cardiovascular: Denies chest pain, Denies shortness of breath Respiratory: Denies cough Gastrointestinal: Denies abdominal pain, Denies diarrhea, Denies nausea, Denies vomiting Genitourinary: Denies dysuria, Denies hematuria Musculoskeletal: Denies myalgias Integumentary: Denies pruritus, Denies rash Neurological: Denies numbness, Denies weakness Psychiatric: Reports depression, Denies anxiety, Denies suicidal ideation Endocrine: Denies fatigue, Denies weight change Past Medical History Past Medical History: Asthma Additional Past Medical History / Comment(s): Obstetric history: This is her first . She has had care with me since 7 weeks. EDC is by a 7 week US. AB+, abs neg, Rub Imm, RPR NR, HEp B neg, HIV NR. Abnormal 1hr but normal 3hrGTT. normal anatomy US. GBS neg. 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 Past Anesthesia/Blood Transfusion Reactions: No Reported Reaction Smoking Status: Never smoker Additional Past Alcohol Use History / Comment(s): Patient was a smoker as a teenager for 1 year only. She smokes marijuana every 3-4 weeks. She lives at home with her mother, her and children. - Past Family History Father Family Medical History: Diabetes Mellitus Additional Family Medical History / Comment(s): Patient does not know history on her father. Mother Additional Family Medical History / Comment(s): Biological mother has history of diabetes. Sister(s) Additional Family Medical History / Comment(s): Patient has one sister with history of ADD and possibly bipolar. Patient is one brother that she does not know any history on. Patient has 2 children with no major medical problems. Medications and Allergies Home Medications Medication Instructions Recorded Confirmed Type ARIPiprazole [Abilify] 10 mg PO DAILY 06/17/18 06/17/18 History Acetaminophen Tab [Tylenol Tab] 325 mg PO DAILY 06/17/18 06/17/18 History Ergocalciferol (Vitamin D2) 50,000 unit PO Q14D 06/17/18 06/17/18 History [Vitamin D2] Ferrous Sulfate [Feosol] 325 mg PO DAILY 06/17/18 06/17/18 History Ibuprofen [Motrin] 600 mg PO DAILY 06/17/18 06/17/18 History Melatonin 10 mg PO HS 06/17/18 06/17/18 History Phentermine HCl [Adipex-P] 37.5 mg PO DAILY 06/17/18 06/17/18 History metFORMIN HCL 1,000 mg PO BID 06/17/18 06/17/18 History Allergies Allergy/AdvReac Type Severity Reaction Status Date / Time methocarbamol [From Robaxin] AdvReac Rapid Verified 06/17/18 16:26 Heart Rate tramadol AdvReac Rapid Verified 06/17/18 16:26 Heart Rate Physical Exam Vitals: Vital Signs Temp Pulse Pulse Resp BP BP Pulse Ox 06/18/18 06:19 98.1 F 106 H 18 106/70 06/17/18 18:48 97.8 F 93 20 118/97 06/17/18 18:18 97.8 F 95 20 111/85 100 06/17/18 15:35 97.7 F 95 15 111/85 100 Gen: This is a morbidly obese 27-year-old female. She ambulated down the hallway appears to be in no acute distress. Gait is steady. She is cooperative. HEENT: Head is atraumatic, normocephalic. Pupils equal, round. Sclerae is anicteric. Conjunctiva pink. Because numbers of the mouth are moist. NECK: Supple. No JVD. No lymphadenopathy. No thyromegaly. LUNGS: Clear to auscultation. No wheezes or rhonchi. No intercostal retractions. HEART: Regular rate and rhythm. No murmur. ABDOMEN: Soft. Bowel sounds are present. No masses. No tenderness. EXTREMITIES: No pedal edema. No calf tenderness. NEUROLOGICAL: Patient is awake, alert and oriented x3. Cranial nerves 2 through 12 are grossly intact. Cranial Nerve Examination - Cranial Nerves Cranial Nerve II- Optic: Intact Cranial Nerve III- Oculomotor: Intact Cranial Nerve IV- Trochlear: Intact Cranial Nerve V- Trigeminal: Intact Cranial Nerve - Abducens: Intact Cranial Nerve VII- Facial: Intact Cranial Nerve VIII- Auditory: Intact Cranial Nerve IX- Glossopharyngeal: Intact Cranial Nerve X- Vagus: Intact Cranial Nerve XI- Accessory: Intact Cranial Nerve XII- Hypoglossal: Intact Results CBC & Chem 7: 06/18/18 09:22 06/18/18 09:22 Labs: Abnormal Lab Results - Last 24 Hours (Table) 06/17/18 06/17/18 06/18/18 Range/Units 16:24 16:24 05:54 Hgb (11.4-16.0) gm/dL MCH (25.0-35.0) pg MCHC (31.0-37.0) g/dL RDW (11.5-15.5) % BUN (7-17) mg/dL Glucose (74-99) mg/dL POC Glucose (mg/dL) 106 H (75-99) mg/dL Total Protein (6.3-8.2) g/dL Albumin (3.5-5.0) g/dL Triglycerides (<150) mg/dL HDL Cholesterol (40-60) mg/dL Urine Appearance Cloudy H (Clear) Urine Protein Trace H (Negative) Ur Leukocyte Esterase Small H (Negative) Ur Squamous Epith Cells 5 H (0-4) /hpf Urine Bacteria Rare H (None) /hpf Urine Mucus Few H (None) /hpf Ur Amphetamines Screen Detected H (NotDetected) 06/18/18 06/18/18 Range/Units 09:22 09:22 Hgb 10.6 L (11.4-16.0) gm/dL MCH 24.7 L (25.0-35.0) pg MCHC 30.2 L (31.0-37.0) g/dL RDW 16.1 H (11.5-15.5) % BUN 18 H (7-17) mg/dL Glucose 149 H (74-99) mg/dL POC Glucose (mg/dL) (75-99) mg/dL Total Protein 6.1 L (6.3-8.2) g/dL Albumin 3.4 L (3.5-5.0) g/dL Triglycerides 195 H (<150) mg/dL HDL Cholesterol 35 L (40-60) mg/dL Urine Appearance (Clear) Urine Protein (Negative) Ur Leukocyte Esterase (Negative) Ur Squamous Epith Cells (0-4) /hpf Urine Bacteria (None) /hpf Urine Mucus (None) /hpf Ur Amphetamines Screen (NotDetected) Assessment and Plan Plan: 1. Recurrent depression with suicidal ideation. Patient currently denies any suicidal ideation. Continue current plan per psychiatrist. Patient is currently on Abilify and Lamictal has been added. 2. Diabetes mellitus type 2. Continue metformin 1000 mg twice daily. 3. Chronic anemia. Continue ferrous sulfate 325 mg daily. 4. Morbid obesity. Patient has been on Adipex and side effect is dysphoria. Recommend holding this medication. 5. Mild intermittent asthma. Ventolin inhaler will be added as needed. Impression and plan of care have been directed as dictated by the signing physician. Ana Yang nurse practitioner acting as scribe for signing physician.
[2018-06-18 16:44] LABS: Glucose,Whole Blood 111 mg/dL (75-99)
[2018-06-18] MEDS: MELATONIN 5 MG TABLET PO SCH (20:19)
[2018-06-18 20:24] LABS: Hemoglobin A1C 6.2 % (4.0-6.0)
[2018-06-19 06:10] LABS: Glucose,Whole Blood 111 mg/dL (75-99)
[2018-06-19] MEDS: metFORMIN 500 MG TAB PO SCH ×2 (07:57→17:09)
[2018-06-19] MEDS: IBUPROFEN 600 MG TAB PO SCH (07:57)
[2018-06-19] MEDS: ARIPiprazole 10 MG TAB PO SCH (07:57)
[2018-06-19] MEDS: FERROUS SULFATE 325 MG TAB PO SCH (07:57)
[2018-06-19 17:36] LABS: Glucose,Whole Blood 104 mg/dL (75-99)
[2018-06-19] MEDS: MELATONIN 5 MG TABLET PO SCH (19:57)
[2018-06-20 05:38] LABS: Glucose,Whole Blood 104 mg/dL (75-99)
[2018-06-20] MEDS: ALBUTEROL INHALER 60 PUFF/8 GM INHALER INHALATION PRN (08:25)
[2018-06-20] MEDS: FERROUS SULFATE 325 MG TAB PO SCH (08:26)
[2018-06-20] MEDS: ARIPiprazole 10 MG TAB PO SCH (08:26)
[2018-06-20] MEDS: metFORMIN 500 MG TAB PO SCH ×2 (08:26→17:32)
[2018-06-20] MEDS: IBUPROFEN 600 MG TAB PO SCH (08:26)
[2018-06-20] MEDS ORDERED: lamoTRIgine 25 MG TAB PO SCH (09:00)
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
--- NOTE | 2018-06-20 11:29 | P.PN ---
Progress Note - Text Progress Note Date: 06/20/18 Interval History: The patient presents alert, pleasant, and cooperative. There calmly seated without any agitated behavior. [She] reports that her mood ( depression 2/10; anxiety 2-3 /10is good. Affect is congruent and euthymic. [ She] deny having any suicidal or homicidal ideation intent or plan. [She] denies any auditory or visual hallucinations. There is no evidence of any delusional thought content. [She] thought process is linear and goal-directed. [Her] speech is fluent and nonpressured. She[] memory and concentration is grossly intact for the purposes of this session. Mental Status: Appearance/Attitude: [grossly ] Behavior: [Her behaviors well within normal and able to interact she's felt less and has been able to interact with her roommate and people in the [facility] thus [facility] and therapeutic environment has been positive for her] Speech/Language: [Speech is normal without any pressured speech and well within normal limits] Thought Process: [She did not display any thought disorders at the present time] Thought Content: [Is well within normal limits and is able to have insight about herself] Suicidal/Homicidal Ideation: [She denies any suicidal or homicidal ideation] Sensorium/Cognition: [Sensorium and cognition is well within her educational functioning] Mood/Affect: [Less depressed and less anxious at the current time and has a bright affect] Insight/Judgment: [Has good insight now about her mental illness and judgment seems well within normal limits] Assessment: [depression;first episode-severe with suicidal thoughts Plan: Increase Lamictal daily and plan to have outpatient psychiatry follow medication and patient] Continue her hospital stay which has greatly helped her self-esteem by being able to talk to people and feel more normalized in her presentation [id number] time 20 minutes today with medication discussion and therapeutic interaction regarding her self-esteem and depression
[2018-06-20] MEDS: lamoTRIgine 25 MG TAB PO SCH (20:06)
[2018-06-20] MEDS: MELATONIN 5 MG TABLET PO SCH (20:06)
[2018-06-20 20:13] LABS: Glucose,Whole Blood 103 mg/dL (75-99)
[2018-06-21 06:37] LABS: Glucose,Whole Blood 111 mg/dL (75-99)
[2018-06-21] MEDS: metFORMIN 500 MG TAB PO SCH ×2 (07:57→17:50)
[2018-06-21] MEDS: ARIPiprazole 10 MG TAB PO SCH (09:08)
[2018-06-21] MEDS: IBUPROFEN 600 MG TAB PO SCH (09:08)
[2018-06-21] MEDS: FERROUS SULFATE 325 MG TAB PO SCH (09:08)
[2018-06-21] MEDS: ALBUTEROL INHALER 60 PUFF/8 GM INHALER INHALATION PRN (11:17)
[2018-06-21 17:20] LABS: Glucose,Whole Blood 105 mg/dL (75-99)
[2018-06-21] MEDS: MAG HYDROX/AL HYDROX/SIMETH 30 ML CUP PO PRN (17:51)
--- NOTE | 2018-06-21 19:40 | PN ---
PROGRESS NOTE Patient seen, interviewed. Found in a better mood. She stated her mood has been improving. She denies any worsening mood swings. She denies any worsening anxiety or depression. She denies hearing voices, seeing things. She has been med compliant, tolerating well, reporting no side effects. She denies any issues. She stated she will be soon ready to go home. No other issues. MENTAL STATUS EXAMINATION: Patient is alert and oriented x4. Has fair eye contact. Speech few word sentences. Mood euthymic. Flat affect. No suicidal or homicidal ideation. I do not see her responding to internal stimuli. Insight and judgment improving slowly and gradually. ASSESSMENT: Major depressive disorder, single episode. PLAN: Continue to adjust medications accordingly. Encourage to attend groups and meetings. Supportive therapy provided. FRANK / GAVINO: [id number] /
[2018-06-21] MEDS: lamoTRIgine 25 MG TAB PO SCH (20:12)
[2018-06-21] MEDS: MELATONIN 5 MG TABLET PO SCH (20:13)
[2018-06-22 06:13] LABS: Glucose,Whole Blood 105 mg/dL (75-99)
[2018-06-22 06:49] VITALS: TEMP 97.8
[2018-06-22] MEDS: metFORMIN 500 MG TAB PO SCH ×2 (08:05→17:40)
[2018-06-22] MEDS: ARIPiprazole 10 MG TAB PO SCH (08:05)
[2018-06-22] MEDS: FERROUS SULFATE 325 MG TAB PO SCH (08:05)
[2018-06-22] MEDS: IBUPROFEN 600 MG TAB PO SCH (08:05)
--- NOTE | 2018-06-22 12:59 | PN ---
PROGRESS NOTE Patient seen, interviewed. She was sitting in the recreation room where she was doing some crossword puzzle. Reports doing a little better. She reports complaining about a dryness of skin and some dryness of facial skin. She reports her mood has been improving. She is excited that her is coming to visit her today. She is working on her coping skills. She likes the medication. She denies having any issues. Did sleep good. MENTAL STATUS EXAMINATION: Patient alert, oriented x4. Has fair eye contact. Speech few word sentences. Mood euthymic with flat affect. Denies suicidal ideation. I did not see her responding to internal stimuli. Insight and judgment improving slowly and gradually. ASSESSMENT: Major depressive disorder, single episode. PLAN: Will continue to adjust medications accordingly. Encouraged to attend groups and meetings. Possible discharge home in a couple of days. FRANK / GAVINO: [id number] /
[2018-06-22 17:45] LABS: Glucose,Whole Blood 110 mg/dL (75-99)
[2018-06-22] MEDS: lamoTRIgine 25 MG TAB PO SCH (20:47)
[2018-06-22] MEDS: MELATONIN 5 MG TABLET PO SCH (20:48)
[2018-06-22] MEDS: ALBUTEROL INHALER 60 PUFF/8 GM INHALER INHALATION PRN (21:26)
[2018-06-23] MEDS: MAG HYDROX/AL HYDROX/SIMETH 30 ML CUP PO PRN (00:53)
[2018-06-23 06:08] LABS: Glucose,Whole Blood 105 mg/dL (75-99)
[2018-06-23 07:10] VITALS: BP 130/76; PULSE 111; RESP 20
[2018-06-23] MEDS: ARIPiprazole 10 MG TAB PO SCH (07:55)
[2018-06-23] MEDS: metFORMIN 500 MG TAB PO SCH (07:55)
[2018-06-23] MEDS: IBUPROFEN 600 MG TAB PO SCH (07:55)
[2018-06-23] MEDS: FERROUS SULFATE 325 MG TAB PO SCH (07:55)
[2018-06-23] MEDS: ALBUTEROL INHALER 60 PUFF/8 GM INHALER INHALATION PRN (09:11)
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
[2018-06-24] MEDS ORDERED: ERGOCALCIFEROL 50,000 UNIT CAP PO SCH (09:00)
== END 2018-06-23 15:59 | disposition home or self-care (01) | DRG 885 ==
LOC: EC 15:31 → 3MHU 17:51
PROVIDERS: ADMIT Psychiatry & Neurology Psychiatry; ATTEND Psychiatry & Neurology Psychiatry
DX: F31.30 Bipolar disorder, current episode depressed, mild or moderate severity, unspecified (principal); R45.851 Suicidal ideations; Z68.43 Body mass index [BMI] 50.0-59.9, adult; E11.9 Type 2 diabetes mellitus without complications; J45.909 Unspecified asthma, uncomplicated; F90.9 Attention-deficit hyperactivity disorder, unspecified type; Z83.3 Family history of diabetes mellitus; Z91.5 Personal history of self-harm; J45.20 Mild intermittent asthma, uncomplicated; E66.01 Morbid (severe) obesity due to excess calories; D64.9 Anemia, unspecified; Z86.32 Personal history of gestational diabetes; Z79.84 Long term (current) use of oral hypoglycemic drugs; Z79.899 Other long term (current) drug therapy; Z86.14 Personal history of Methicillin resistant Staphylococcus aureus infection; Z87.891 Personal history of nicotine dependence; T50.5X5A Adverse effect of appetite depressants, initial encounter; R49.0 Dysphonia; Z81.8 Family history of other mental and behavioral disorders
CPT/HCPCS: 80053; 80061; 80306; 81001; 81025; 82075; 83036; 84443; 85025; 94640; 99285

== ENCOUNTER → 2018-10-03 | Outpatient (CLI) | payer OTHER ==
[2018-10-03 12:14] LABS: Blood Urea Nitrogen 17 mg/dL (7-17)
--- NOTE | 2018-10-03 14:39 | CT ---
EXAMINATION TYPE: CT abdomen pelvis w con DATE OF EXAM: 10/03/2018 HISTORY: Bilateral pelvic pain x [address] DLP: 1805mGycm Automated Exposure Control for Dose Reduction was Utilized. CONTRAST: CT scan of the abdomen and pelvis is performed with IV Contrast, patient injected with 100 mL of Isov ue M300. COMPARISON: Ultrasound abdomen complete December 09, 2017 FINDINGS: LUNG BASES: No significant abnormality is appreciated. LIVER/GB: Dependent small calcified gallstones are seen in gallbladder. No surrounding inflammatory c hange is noted. PANCREAS: No significant abnormality is seen. SPLEEN: There is 1.1 cm splenule superior anterior to the spleen axial image 16 ADRENALS: No significant abnormality is seen. KIDNEYS: No significant abnormality is seen. BOWEL: Oral contrast reaches level of sigmoid colon. There is no suspicious small or large bowel dila tation. Small size hiatal hernia is present. UTERUS/ADNEXA: Anteverted uterus is seen. Both ovaries are identified and normal in size LYMPH NODES: No greater than 1cm abdominal or pelvic lymph nodes are appreciated. OSSEOUS STRUCTURES: There is a sacralized L5 segment. OTHER: No significant additional abnormality is seen. IMPRESSION: No significant acute finding is seen to account for patient's clinical symptoms.
== END | disposition home or self-care (01) ==
LOC: RADCTMAIN 10:47
PROVIDERS: ATTEND Internal Medicine Geriatric Medicine
DX: K52.9 Noninfective gastroenteritis and colitis, unspecified (principal)
CPT/HCPCS: 82565; 84520; 74177; 36415; Q9967

== ENCOUNTER → 2019-09-24 | Outpatient (CLI) | payer OTHER ==
--- NOTE | 2019-09-24 14:59 | XR ---
Left ankle HISTORY: Pain 3 views of the left ankle There is soft tissue swelling present. Alignment, joint spaces, bone mineralization are normal. No ev ident fracture or dislocation. IMPRESSION: Soft tissue swelling.
== END | disposition home or self-care (01) ==
LOC: RADXRMAIN 12:06
PROVIDERS: ATTEND Internal Medicine Geriatric Medicine
DX: M25.472 Effusion, left ankle (principal)

== ENCOUNTER 2019-10-13 08:58 | Emergency (ER) | payer OTHER ==
[2019-10-13 09:14] VITALS: BP 139/90; PULSE 86; RESP 18; TEMP 99
--- NOTE | 2019-10-13 09:37 | ED ---
ENT HPI - General Chief complaint: ENT Stated complaint: sorethroat Time Seen by Provider: 10/13/19 09:16 Source: patient, RN notes reviewed Mode of arrival: ambulatory Limitations: no limitations - History of Present Illness Initial comments: 28-year-old female presents emergency Department chief complaints sore throat. Patient states that she's had a sore throat for 1 week states it's not improving. She's had increasing pain with swallowing. She reports. Fever at home. Normal nasal congestion no current cough or shortness of breath. She does have some mild ear pain. She is not taking any recent Tylenol Motrin multiple sick contacts contacts including significant other with strep. - Related Data Home Medications Medication Instructions Recorded Confirmed ARIPiprazole [Abilify] 10 mg PO DAILY 06/17/18 06/21/18 Ergocalciferol (Vitamin D2) 50,000 unit PO Q14D 06/17/18 06/21/18 [Vitamin D2] Melatonin 10 mg PO HS 06/17/18 06/21/18 metFORMIN HCL 1,000 mg PO BID 06/17/18 06/21/18 Previous Rx's Medication Instructions Recorded Albuterol Inhaler [Ventolin Hfa 2 puff INHALATION RT-TID PRN puff 06/23/18 Inhaler] Ergocalciferol [Vitamin D2 50,000 unit PO Q14D cap 06/23/18 (DRISDOL)] Ferrous Sulfate [Iron (65 MG 325 mg PO DAILY tab 06/23/18 Elemental)] lamoTRIgine [LaMICtal] 50 mg PO HS 30 Days #60 tab 06/23/18 metFORMIN HCL [Glucophage] 1,000 mg PO BID-W/MEALS tab 06/23/18 Amoxicillin 500 mg PO Q8H #30 capsule 10/13/19 Allergies Allergy/AdvReac Type Severity Reaction Status Date / Time methocarbamol [From Robaxin] AdvReac Rapid Verified 10/13/19 09:12 Heart Rate tramadol AdvReac Rapid Verified 10/13/19 09:12 Heart Rate Review of Systems ROS Statement: Those systems with pertinent positive or pertinent negative responses have been documented in the HPI. ROS Other: All systems not noted in ROS Statement are negative. Past Medical History Past Medical History: Asthma Additional Past Medical History / Comment(s): Obstetric history: This is her first . She has had care with me since 7 weeks. EDC is by a 7 week US. AB+, abs neg, Rub Imm, RPR NR, HEp B neg, HIV NR. Abnormal 1hr but normal 3hrGTT. normal anatomy US. GBS neg. 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 Past Anesthesia/Blood Transfusion Reactions: No Reported Reaction Past Psychological History: ADD/ADHD, Bipolar Smoking Status: Never smoker Past Alcohol Use History: Rare Past Drug Use History: None Reported - Past Family History Mother Additional Family Medical History / Comment(s): Biological mother has history of diabetes. Sister(s) Additional Family Medical History / Comment(s): Patient has one sister with history of ADD and possibly bipolar. Patient is one brother that she does not know any history on. Patient has 2 children with no major medical problems. Father Family Medical History: Diabetes Mellitus Additional Family Medical History / Comment(s): Patient does not know history on her father. General Exam Limitations: no limitations General appearance: alert, in no apparent distress Head exam: Present: atraumatic, normocephalic, normal inspection Eye exam: Present: normal appearance, PERRL, EOMI. Absent: scleral icterus, conjunctival injection, periorbital swelling ENT exam: Present: mucous membranes moist, TM's normal bilaterally, normal external ear exam. Absent: normal oropharynx (Erythema, mild swelling noted difficulty swallow secretions) Neck exam: Present: normal inspection, full ROM, lymphadenopathy (Multiple ant erior cervical). Absent: tenderness, meningismus Respiratory exam: Present: normal lung sounds bilaterally. Absent: respiratory distress, wheezes, rales, rhonchi, stridor Cardiovascular Exam: Present: regular rate, normal rhythm, normal heart sounds. Absent: systolic murmur, diastolic murmur, rubs, gallop, clicks Course Vital Signs 10/13/19 09:12 Temperature 99.0 F Pulse Rate 86 Respiratory 18 Rate Blood Pressure 139/90 O2 Sat by Pulse 96 Oximetry Medical Decision Making - Medical Decision Making Patient admits to fever at home, positive strep exposure, erythema and multiple anterior cervical lymphadenopathy. Patient will be treated for suspected strep pharyngitis. Patient placed on amoxicillin return parameters discussed. Disposition Clinical Impression: Acute pharyngitis Disposition: HOME SELF-CARE Condition: Stable Instructions (If sedation given, give patient instructions): Pharyngitis (ED) Additional Instructions: Please return to the Emergency Department if symptoms worsen or any other concerns. Prescriptions: Amoxicillin 500 mg PO Q8H #30 capsule Is patient prescribed a controlled substance at d/c from ED?: No Referrals: Frederic Chaudhary MD [Primary Care Provider] - 1-2 days Time of Disposition: 09:37
== END 2019-10-13 10:12 | disposition home or self-care (01) ==
LOC: EC 08:58
DX: J02.9 Acute pharyngitis, unspecified (principal); Z22.8 Carrier of other infectious diseases; R50.9 Fever, unspecified; R09.81 Nasal congestion; H92.09 Otalgia, unspecified ear; F31.9 Bipolar disorder, unspecified; Z88.5 Allergy status to narcotic agent; Z88.8 Allergy status to other drugs, medicaments and biological substances; Z79.84 Long term (current) use of oral hypoglycemic drugs; Z79.899 Other long term (current) drug therapy; Z86.14 Personal history of Methicillin resistant Staphylococcus aureus infection; Z90.89 Acquired absence of other organs
CPT/HCPCS: 99283

== ENCOUNTER → 2020-03-19 | Outpatient (CLI) | payer OTHER | END | disposition home or self-care (01) | LOC: RADMRIMAIN 10:23 | PROVIDERS: ATTEND Nurse Practitioner Family | DX: Z53.9 Procedure and treatment not carried out, unspecified reason (principal) ==

== ENCOUNTER 2023-06-21 10:30 | Inpatient (IN) | payer OTHER ==
[2023-06-21] MEDS ORDERED: IPRATROPIUM-ALBUTEROL 3 ML NEB INHALATION STA ×2 (10:43→12:57)
--- NOTE | 2023-06-21 10:48 | ED ---
SOB HPI - General Chief Complaint: Shortness of Breath Stated Complaint: KAYA Time Seen by Provider: 06/21/23 10:36 Source: patient, RN notes reviewed Mode of arrival: ambulatory Limitations: no limitations - History of Present Illness Initial Comments: This is a 32-year-old female who presents to the emergency department for coughing and difficulty breathing. Patient has been to urgent care several times over the last 3 weeks and has been on 3 rounds of antibiotics, steroids, and breathing treatments. States that her symptoms continue to persist and she has had no relief with any medications. She has a history of asthma, but has never required hospitalization and states the symptoms have never been this bad. She is now having conversational dyspnea. Her cough is described as productive with large amounts of green sputum. Denies any associated chest pain. Denies any fevers, chills, sore throat, chest pain, palpitations, abdominal pain, nausea, vomiting, diarrhea, back pain, or headaches. MD Complaint: shortness of breath - Related Data Home Medications Medication Instructions Recorded Confirmed Albuterol Nebulized [Ventolin 2.5 mg INHALATION RT-QID PRN 06/21/23 06/21/23 Nebulized] Albuterol Sulfate [Albuterol 2 puff PO RT-QID PRN 06/21/23 06/21/23 Sulfate Hfa] Ascorbic Acid [Vitamin C] 500 mg PO HS 06/21/23 06/21/23 Allergies Allergy/AdvReac Type Severity Reaction Status Date / Time methocarbamol [From Robaxin] AdvReac Rapid Verified 06/21/23 15:27 Heart Rate Milk Containing Products AdvReac upset Verified 06/21/23 15:27 [Dairy] stomach/constipation tramadol AdvReac Rapid Verified 06/21/23 15:27 Heart Rate Review of Systems ROS Statement: Those systems with pertinent positive or pertinent negative responses have been documented in the HPI. ROS Other: All systems not noted in ROS Statement are negative. Past Medical History Past Medical History: Asthma Additional Past Medical History / Comment(s): Obstetric history: This is her first . She has had care with me since 7 weeks. EDC is by a 7 week US. AB+, abs neg, Rub Imm, RPR NR, HEp B neg, HIV NR. Abnormal 1hr but normal 3hrGTT. normal anatomy US. GBS neg. 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 Past Anesthesia/Blood Transfusion Reactions: No Reported Reaction Past Psychological History: ADD/ADHD, Bipolar Smoking Status: Never smoker Past Alcohol Use History: Rare Past Drug Use History: None Reported - Past Family History Mother Additional Family Medical History / Comment(s): Biological mother has history of diabetes. Sister(s) Additional Family Medical History / Comment(s): Patient has one sister with history of ADD and possibly bipolar. Patient is one brother that she does not know any history on. Patient has 2 children with no major medical problems. Father Family Medical History: Diabetes Mellitus Additional Family Medical History / Comment(s): Patient does not know history on her father. General Exam Limitations: no limitations General appearance: alert, in no apparent distress Head exam: Present: atraumatic, normocephalic, normal inspection Respiratory exam: Present: respiratory distress, wheezes, decreased breath sounds, prolonged expiratory Cardiovascular Exam: Present: normal rhythm, tachycardia Neurological exam: Present: alert, oriented X3, CN II-XII intact Psychiatric exam: Present: normal affect, normal mood Skin exam: Present: warm, dry, intact, normal color. Absent: rash Course Vital Signs 06/21/23 06/21/23 06/21/23 10:32 12:23 12:32 Temperature 98.4 F Pulse Rate 130 H 108 H 104 H Pulse Rate [ Supine Pulse Oximetery] Respiratory 22 Rate Blood Pressure 143/89 O2 Sat by Pulse 95 Oximetry 06/21/23 06/21/23 06/21/23 12:46 15:45 15:53 Temperature Pulse Rate 112 H 108 H 104 H Pulse Rate [ Supine Pulse Oximetery] Respiratory 20 Rate Blood Pressure 147/78 O2 Sat by Pulse 98 Oximetry 06/21/23 06/21/23 06/21/23 17:15 20:00 21:00 Temperature Pulse Rate 118 H 99 Pulse Rate [ 124 H Supine Pulse Oximetery] Respiratory 18 20 Rate Blood Pressure 143/89 143/93 O2 Sat by Pulse 94 L 94 L Oximetry Medical Decision Making - Medical Decision Making This is a 32-year-old female who presents to the emergency department for coughing and shortness of breath. Was pt. sent in by a medical professional or institution? @ -No Did you speak to anyone other than the patient for history? @ -No Did you review nursing and triage notes? @ -Yes, and I agree, it is accurate with regards to the patient's symptoms. Were old charts reviewed? @ -No Differential Diagnosis? @ -Differential Dyspnea: Coronary syndrome, arrhythmia, tamponade, asthma, COPD, pulmonary embolism, pneumonia, pneumothorax, pulmonary effusion, anaphylaxis, diabetic ketoacidosis, flailed chest, pulmonary contusion, diaphragmatic rupture, anemia, neuromuscular, this is not meant to be an all-inclusive list. EKG interpreted by me (3pts min.)? @ -EKG interpreted by me demonstrating the following: Sinus tachycardia. Ventricular rate 120 beats per minute, QRS duration 88 ms, QTC 373 ms. X-rays interpreted by me (1pt min.)? @ -Chest x-ray obtained, my interpretation identifies no localized con solidations or infiltrates. CT interpreted by me (1pt min.)? @ -Not obtained U/S interpreted by me (1pt. min.)? @ -Not obtained What testing was considered but not performed? (CT, X-rays, U/S, labs)? Why? @ -None What meds were considered but not given? Why? @ -None Did you discuss the management of the patient with other professionals? @ -Yes, Dr. Francis, who accepts the patient for admission. Did you reconcile home meds? @ -No Was smoking cessation discussed for >3mins.? @ -No Was critical care preformed (if so, how long)? @ -No Were there social determinants of health that impacted care today? How? (Homelessness, low income, unemployed, alcoholism, drug addiction, tra nsportation, low edu. Level, literacy, decrease access to med. care, long-term, rehab)? @ -No Was there de-escalation of care discussed even if they declined? (Discuss DNR or withdrawal of care, Hospice)? @ -No What co-morbidities impacted this encounter? (DM, HTN, Smoking, COPD, CAD, Cancer, CVA, Hep., AIDS, mental health diagnosis, sleep apnea, morbid obesity)? @ -Asthma Was patient admitted / discharged? @ -Admitted. Lab work obtained revealing leukocytosis, likely secondary to her recent steroid use. D-dimer and troponin were negative. Covid, influenza, and R SV testing were negative. Chest x-ray reveals no acute process. Patient was exhibiting significant conversational dyspnea and had poor breath sounds on auscultation. She was treated with DuoNeb breathing treatments. Given the persistent and worsening symptoms, patient admitted to medicine for asthma exacerbation and failed outpatient management. Consult placed for pulmonology. Undiagnosed new problem with uncertain prognosis? @ -None Drug Therapy requiring intensive monitoring for toxicity (Heparin, Nitro, Insulin, Cardizem)? @ -None Were any procedures done? @ -None Diagnosis/symptom? @ -Asthma exacerbation Acute, or Chronic, or Acute on Chronic? @ -Acute on chronic Uncomplicated (without systemic symptoms) or Complicated (systemic symptoms)? @ -Uncomplicated Side effects of treatment? @ -None Exacerbation, Progression, or Severe Exacerbation] @ -Severe exacerbation Poses a threat to life or bodily function? @ -Yes This case was discussed in detail with the attending ED physician, Dr. Rice. Presentation, findings, and treatment plan discussed in detail as well. - Lab Data Result diagrams: 06/21/23 10:56 06/22/23 06:01 Lab Results 06/21/23 06/21/23 06/21/23 Range/Units 10:56 10:56 10:56 WBC 14.1 H (3.8-10.6) k/uL RBC 4.93 (3.80-5.40) m/uL Hgb 13.0 (11.4-16.0) gm/dL Hct 40.7 (34.0-46.0) % MCV 82.5 (80.0-100.0) fL MCH 26.4 (25.0-35.0) pg MCHC 32.0 (31.0-37.0) g/dL RDW 14.9 (11.5-15.5) % Plt Count 423 (150-450) k/uL MPV 7.7 Neutrophils % 59 % Lymphocytes % 23 % Monocytes % 4 % Eosinophils % 12 % Basophils % 1 % Neutrophils # 8.3 H (1.3-7.7) k/uL Lymphocytes # 3.3 (1.0-4.8) k/uL Monocytes # 0.6 (0-1.0) k/uL Eosinophils # 1.7 H (0-0.7) k/uL Basophils # 0.1 (0-0.2) k/uL Hypochromasia Slight PT 9.4 (9.0-12.0) sec INR 0.9 (<1.2) APTT 24.9 (22.0-30.0) sec D-Dimer 0.52 (<0.60) mg/L FEU Sodium 136 L (137-145) mmol/L Potassium 4.6 (3.5-5.1) mmol/L Chloride 104 (98-107) mmol/L Carbon Dioxide 25 (22-30) mmol/L Anion Gap 7 mmol/L BUN 14 (7-17) mg/dL Creatinine 0.67 (0.52-1.04) mg/dL Est GFR (CKD-EPI)AfAm >90 (>60 ml/min/1.73 sqM) Est GFR (CKD-EPI)NonAf >90 (>60 ml/min/1.73 sqM) Glucose 152 H (74-99) mg/dL Plasma Lactic Acid Arash (0.7-2.0) mmol/L Calcium 9.5 (8.4-10.2) mg/dL Total Bilirubin 0.5 (0.2-1.3) mg/dL AST 34 (14-36) U/L ALT 28 (4-34) U/L Alkaline Phosphatase 113 (38-126) U/L Troponin I (0.000-0.034) ng/mL C-Reactive Protein (<1.0) mg/dL Total Protein 6.7 (6.3-8.2) g/dL Albumin 3.7 (3.5-5.0) g/dL Procalcitonin (0.02-0.09) ng/mL HCG, Qual Not Detected Influenza Type A (PCR) (Not Detectd) Influenza Type B (PCR) (Not Detectd) Urine Legionella Ag (Negative) RSV (PCR) (Not Detectd) SARS-CoV-2 (PCR) (Not Detectd) 06/21/23 06/21/23 06/21/23 Range/Units 10:56 10:56 10:56 WBC (3.8-10.6) k/uL RBC (3.80-5.40) m/uL Hgb (11.4-16.0) gm/dL Hct (34.0-46.0) % MCV (80.0-100.0) fL MCH (25.0-35.0) pg MCHC (31.0-37.0) g/dL RDW (11.5-15.5) % Plt Count (150-450) k/uL MPV Neutrophils % % Lymphocytes % % Monocytes % % Eosinophils % % Basophils % % Neutrophils # (1.3-7.7) k/uL Lymphocytes # (1.0-4.8) k/uL Monocytes # (0-1.0) k/uL Eosinophils # (0-0.7) k/uL Basophils # (0-0.2) k/uL Hypochromasia PT (9.0-12.0) sec INR (<1.2) APTT (22.0-30.0) sec D-Dimer (<0.60) mg/L FEU Sodium (137-145) mmol/L Potassium (3.5-5.1) mmol/L Chloride (98-107) mmol/L Carbon Dioxide (22-30) mmol/L Anion Gap mmol/L BUN (7-17) mg/dL Creatinine (0.52-1.04) mg/dL Est GFR (CKD-EPI)AfAm (>60 ml/min/1.73 sqM) Est GFR (CKD-EPI)NonAf (>60 ml/min/1.73 sqM) Glucose (74-99) mg/dL Plasma Lactic Acid Arash 1.0 (0.7-2.0) mmol/L Calcium (8.4-10.2) mg/dL Total Bilirubin (0.2-1.3) mg/dL AST (14-36) U/L ALT (4-34) U/L Alkaline Phosphatase (38-126) U/L Troponin I <0.012 (0.000-0.034) ng/mL C-Reactive Protein (<1.0) mg/dL Total Protein (6.3-8.2) g/dL Albumin (3.5-5.0) g/dL Procalcitonin (0.02-0.09) ng/mL HCG, Qual Influenza Type A (PCR) Not Detected (Not Detectd) Influenza Type B (PCR) Not Detected (Not Detectd) Urine Legionella Ag (Negative) RSV (PCR) Not Detected (Not Detectd) SARS-CoV-2 (PCR) Not Detected (Not Detectd) 06/21/23 06/21/23 06/21/23 Range/Units 10:56 10:56 12:08 WBC (3.8-10.6) k/uL RBC (3.80-5.40) m/uL Hgb (11.4-16.0) gm/dL Hct (34.0-46.0) % MCV (80.0-100.0) fL MCH (25.0-35.0) pg MCHC (31.0-37.0) g/dL RDW (11.5-15.5) % Plt Count (150-450) k/uL MPV Neutrophils % % Lymphocytes % % Monocytes % % Eosinophils % % Basophils % % Neutrophils # (1.3-7.7) k/uL Lymphocytes # (1.0-4.8) k/uL Monocytes # (0-1.0) k/uL Eosinophils # (0-0.7) k/uL Basophils # (0-0.2) k/uL Hypochromasia PT (9.0-12.0) sec INR (<1.2) APTT (22.0-30.0) sec D-Dimer (<0.60) mg/L FEU Sodium (137-145) mmol/L Potassium (3.5-5.1) mmol/L Chloride (98-107) mmol/L Carbon Dioxide (22-30) mmol/L Anion Gap mmol/L BUN (7-17) mg/dL Creatinine (0.52-1.04) mg/dL Est GFR (CKD-EPI)AfAm (>60 ml/min/1.73 sqM) Est GFR (CKD-EPI)NonAf (>60 ml/min/1.73 sqM) Glucose (74-99) mg/dL Plasma Lactic Acid Arash (0.7-2.0) mmol/L Calcium (8.4-10.2) mg/dL Total Bilirubin (0.2-1.3) mg/dL AST (14-36) U/L ALT (4-34) U/L Alkaline Phosphatase (38-126) U/L Troponin I (0.000-0.034) ng/mL C-Reactive Protein 3.3 H (<1.0) mg/dL Total Protein (6.3-8.2) g/dL Albumin (3.5-5.0) g/dL Procalcitonin 0.07 (0.02-0.09) ng/mL HCG, Qual Influenza Type A (PCR) (Not Detectd) Influenza Type B (PCR) (Not Detectd) Urine Legionella Ag Negative (Negative) RSV (PCR) (Not Detectd) SARS-CoV-2 (PCR) (Not Detectd) - Radiology Data Radiology results: report reviewed, image reviewed Disposition Clinical Impression: Asthma exacerbation Disposition: ADMITTED IP TO THIS HOSP
[2023-06-21 11:07] LABS: Basophils # (A) 0.1 k/uL (0-0.2); Basophils % (A) 1 %; Eosinophils # (A) 1.7 k/uL (0-0.7); Eosinophils % (A) 12 %; HCT 40.7 % (34.0-46.0); Hypochromasia Slight; Lymphocytes # (A) 3.3 k/uL (1.0-4.8); Lymphocytes % (A) 23 %; MCH 26.4 pg (25.0-35.0); MCV 82.5 fL (80.0-100.0); Mean Platelet Volume 7.7; Monocytes # (A) 0.6 k/uL (0-1.0); Monocytes % (A) 4 %; Neutrophils # (A) 8.3 k/uL (1.3-7.7); Neutrophils % (A) 59 %; Platelet Count 423 k/uL (150-450); RBC 4.93 m/uL (3.80-5.40); RDW 14.9 % (11.5-15.5); WBC 14.1 k/uL (3.8-10.6)
[2023-06-21 11:20] LABS: INR 0.9 (<1.2); Partial Thromboplastin Time 24.9 sec (22.0-30.0); Prothrombin Time 9.4 sec (9.0-12.0)
[2023-06-21 11:21] LABS: ALT 28 U/L (4-34); AST 34 U/L (14-36); African American GFR (CKD) >90 (>60 ml/min/1.73 sqM); Albumin 3.7 g/dL (3.5-5.0); Alkaline Phosphatase 113 U/L (38-126); Anion Gap 7 mmol/L; Blood Urea Nitrogen 14 mg/dL (7-17); Calcium 9.5 mg/dL (8.4-10.2); Carbon Dioxide 25 mmol/L (22-30); Chloride 104 mmol/L (98-107); Glucose 152 mg/dL (74-99); Non-African American GFR(CKD) >90 (>60 ml/min/1.73 sqM); Potassium 4.6 mmol/L (3.5-5.1); Sodium 136 mmol/L (137-145); Total Bilirubin 0.5 mg/dL (0.2-1.3); Total Protein 6.7 g/dL (6.3-8.2)
--- NOTE | 2023-06-21 11:22 | XR ---
EXAMINATION TYPE: XR chest 2V DATE OF EXAM: 06/21/2023 COMPARISON: 11/11/2013 HISTORY: Chest pain TECHNIQUE: Frontal and lateral views of the chest are obtained. FINDINGS: There is no focal air space opacity. No evidence for pneumothorax. No pleural effusion. The cardiac silhouette size is within normal limits. The osseous structures are grossly intact. IMPRESSION: 1. No acute cardiopulmonary process.
[2023-06-21 11:30] LABS: HCG,Qualitative Serum Not Detected
[2023-06-21] MEDS ORDERED: methylPREDNISolone SOD SUCCI 125 MG/2 ML VIAL IV STA (12:08)
[2023-06-21] MEDS ORDERED: ACETAMINOPHEN TAB 325 MG TAB PO PRN (13:54)
[2023-06-21] MEDS ORDERED: KETOROLAC 15 MG/ML 1 ML VIAL IVP PRN (13:54)
[2023-06-21] MEDS ORDERED: MORPHINE SULFATE 4 MG/ML SYRINGE IV PRN (13:54)
[2023-06-21] MEDS ORDERED: NALOXONE 0.4 MG/ML 1 ML VIAL IV PRN (13:54)
[2023-06-21] MEDS: guaiFENesin-DM 600/30MG 1 EACH TAB.ER.12H PO SCH ×2 (17:14→22:50)
[2023-06-21] MEDS: ASCORBIC ACID 500 MG TAB PO SCH (20:57)
[2023-06-22 07:41] LABS: Glucose,Whole Blood 243 mg/dL (70-110)
[2023-06-22] MEDS: guaiFENesin-DM 600/30MG 1 EACH TAB.ER.12H PO SCH ×2 (09:34→21:34)
[2023-06-22] MEDS ORDERED: ALBUTEROL HFA INHALER INHALATION PRN (11:04)
[2023-06-22 11:23] LABS: Glucose,Whole Blood 232 mg/dL (70-110)
[2023-06-22 11:45] LABS: Blood Urea Nitrogen 13.3 mg/dL (9.0-27.0); Calcium 9.5 mg/dL (8.7-10.3); Chloride 102 mmol/L (96-109); Glucose 234 mg/dL (70-110); Potassium 4.6 mmol/L (3.5-5.5); Sodium 136 mmol/L (135-145)
--- NOTE | 2023-06-22 12:47 | P.CNPUL ---
History of Present Illness Consult date: 06/22/23 Reason for consult: dyspnea History of present illness: 32-year-old morbidly obese female patient with a body mass index of 52.7. She has history of childhood asthma. No maintenance respiratory medications she's been utilizing Ventolin as needed basis. No previous hospitalizations. No previous history of Covid 19 infection. The patient comes into the hospital after being treated on outpatient basis through various urgent care as and the patient was given a combination of antibiotics and steroids on 3 different occasions. Yesterday, she was admitted to the hospital. The chest x-ray was clear. No hemoptysis. No pleurisy. No significant sputum production. No altered mentation. No swelling in lower extremities. No angina. No palpitations. She is feeling well. The lungs are clear today's examination. Denies having any sinus ALLERGIES. Denies having any exposure to any respiratory irritants. No reflux. She does have features of obstructive sleep apnea. BUN is at 13 with a creatinine of 0.5. The echoes at 14.4 with hemoglobin 13.0. The viral screen was negative. Troponins are negative. D- dimer is at 0.52. Chest x-ray is clear. Review of Systems Constitutional: Reports weight gain Eyes: denies as per HPI, denies blurred vision, denies bulging eye, denies decreased vision, denies diplopia, denies discharge, denies dry eye, denies irritation, denies itching, denies pain, denies photophobia, denies loss of peripheral vision, denies loss of vision, denies tunnel vision/blind spots Ears: deny: decreased hearing, ear discharge, earache, tinnitus Ears, nose, mouth and throat: Reports as per HPI Breasts: absent: as per HPI, change in shape, gynecomastia, masses, nipple discharge, pain, skin changes, swelling Cardiovascular: Reports decreased exercise tolerance, Reports dyspnea on exertion Respiratory: Reports dyspnea, Reports snoring Gastrointestinal: Reports as per HPI Genitourinary: Reports as per HPI Menstruation: Reports as per HPI Musculoskeletal: Reports as per HPI Musculoskeletal: absent: ankle pain, ankle stiffness, ankle swelling Integumentary: Reports as per HPI Neurological: Reports as per HPI Psychiatric: Reports as per HPI Endocrine: Reports as per HPI Hematologic/Lymphatic: Reports as per HPI Allergic/Immunologic: Reports as per HPI Past Medical History Past Medical History: Asthma Additional Past Medical History / Comment(s): Obesity, Pseudotumor History of Any Multi-Drug Resistant Organisms: MRSA Date of last positivie culture/infection: 2011 MDRO Source:: MRSA on the Back Past Surgical History: Section, Tonsillectomy Additional Past Surgical History / Comment(s): 2, MRSA REMOVED FROM BACK. Past Anesthesia/Blood Transfusion Reactions: No Reported Reaction Past Psychological History: ADD/ADHD, Bipolar Smoking Status: Former smoker Past Alcohol Use History: Rare Additional Past Alcohol Use History / Comment(s): Patient was a smoker as a teenager for 1 year only. She lives at home with her mother, her and children. Past Drug Use History: None Reported - Past Family History Mother Additional Family Medical History / Comment(s): Biological mother has history of diabetes. Sister(s) Additional Family Medical History / Comment(s): Patient has one sister with history of ADD and possibly bipolar. Patient is one brother that she does not know any history on. Patient has 2 children with no major medical problems. Father Family Medical History: Diabetes Mellitus Additional Family Medical History / Comment(s): Patient does not know history on her father. Medications and Allergies Home Medications Medication Instructions Recorded Confirmed Type Albuterol Nebulized [Ventolin 2.5 mg INHALATION RT-QID PRN 06/21/23 06/21/23 History Nebulized] Albuterol Sulfate [Albuterol 2 puff PO RT-QID PRN 06/21/23 06/21/23 History Sulfate Hfa] Ascorbic Acid [Vitamin C] 500 mg PO HS 06/21/23 06/21/23 History Allergies Allergy/AdvReac Type Severity Reaction Status Date / Time methocarbamol [From Robaxin] AdvReac Rapid Verified 06/21/23 15:27 Heart Rate Milk Containing Products AdvReac upset Verified 06/21/23 15:27 [Dairy] stomach/constipation tramadol AdvReac Rapid Verified 06/21/23 15:27 Heart Rate Physical Exam Vitals: Vital Signs Temp Pulse Pulse Resp BP BP Pulse Ox 06/22/23 07:35 97.6 F 70 18 114/79 93 L 06/22/23 01:36 98.5 F 82 18 121/72 92 L 06/21/23 21:20 98.0 F 124 H 20 151/106 93 L 06/21/23 21:00 99 20 143/93 94 L 06/21/23 20:00 124 H 06/21/23 17:15 118 H 18 143/89 94 L 06/21/23 15:53 104 H 06/21/23 15:45 108 H 06/21/23 12:46 112 H 20 147/78 98 06/21/23 12:32 104 H 06/21/23 12:23 108 H Intake and Output 06/21/23 06/22/23 06/22/23 22:59 06:59 14:59 Other: Voiding Method Toilet # Voids 1 Weight 139.253 kg Gen. appearance the patient is obese, comfortable distress, pulse ox on room air is around 91%, body mass index is at 52.7. The patient appeared well nourished and normally developed. Vital signs as documented. Head exam is unremarkable. No scleral icterus or corneal arcus noted. Neck is without jugular venous distension, thyromegaly, or carotid bruits. Carotid upstrokes are brisk bilaterally. Lungs are clear to auscultation and percussion. Cardiac exam reveals the PMI to be normally sized and situated. Rhythm is regular. First and second heart sounds normal. No murmurs, rubs or gallops. Abdominal exam reveals normal bowel sounds, no masses, no organomegaly and no aortic enlargement. Extremities are nonedematous and both femoral and pedal pulses are normal.. Examination of the skin revealed no evidence of significant rashes, suspicious appearing nevi or other concerning lesions.. Neurologically, the patient is awake and alert and the patient does not have any focal neurological deficit. Cranial nerves are essentially intact. Results - Laboratory Findings CBC and BMP: 06/21/23 10:56 06/22/23 06:01 PT/INR, D-dimer PT 9.4 sec (9.0-12.0) 06/21/23 10:56 INR 0.9 (<1.2) 06/21/23 10:56 D-Dimer 0.52 mg/L FEU (<0.60) 06/21/23 10:56 Abnormal lab findings: Abnormal Labs 06/21/23 06/21/23 06/21/23 10:56 10:56 10:56 WBC 14.1 H Neutrophils # 8.3 H Eosinophils # 1.7 H Sodium 136 L Glucose 152 H POC Glucose (mg/dL) C-Reactive Protein 3.3 H 06/22/23 07:40 WBC Neutrophils # Eosinophils # Sodium Glucose POC Glucose (mg/dL) 243 H C-Reactive Protein - Diagnostic Findings Chest x-ray: image reviewed Assessment and Plan Plan: Chronic bronchial asthma with recent exacerbation, improved Morbid obesity, body mass index of 52.7 with obvious features obstructive sleep apnea Hypoxemia, likely chronic, likely secondary to mitral atelectatic change in lung bases secondary to body habitus Plan Start Patient on Symbicort maintenance 160/4 without post twice a day Ventolin rescue inhaler administered basis Weight loss Operation PFT Outpatient sleep study Cleared for discharge from pulmonary standpoint
[2023-06-22 15:50] LABS: Basophils # (A) 0.02 X 10*3/uL (0.00-0.10); Basophils % (A) 0.1 %; Eosinophils # (A) 0 X 10*3/uL (0.04-0.35); Eosinophils % (A) 0 %; HCT 35.5 % (37.2-46.3); HGB 11.8 d/dL (12.0-15.0); Lymphocytes # (A) 1.58 X 10*3/uL (0.90-5.00); Lymphocytes % (A) 10.3 %; MCH 28.3 pg (27.0-32.0); MCHC 33.2 d/dL (32.0-37.0); MCV 85.1 FL (80.0-97.0); Mean Platelet Volume 10.6 FL (9.5-12.2); Monocytes # (A) 0.36 X 10*3/uL (0.20-1.00); Monocytes % (A) 2.4 %; NRBC Per 100 WBC 0 X 10*3/uL (0.00-0.01); Neutrophils # (A) 12.86 X 10*3/uL (1.80-7.70); Neutrophils % (A) 84.3 %; Platelet Count 395 X 10*3/uL (140-440); RBC 4.17 X 10*6/uL (4.10-5.20); RDW 15.5 % (11.5-14.5); WBC 15.27 X 10*3/uL (4.50-10.00)
[2023-06-22 17:19] LABS: Glucose,Whole Blood 289 mg/dL (70-110)
--- NOTE | 2023-06-22 19:04 | P.HPIM ---
History of Present Illness H&P Date: 06/21/23 Chief Complaint: Shortness of breath 32-year-old female who presents to the emergency department for coughing and difficulty breathing. Patient has been to urgent care several times over the last 3 weeks and has been on 3 rounds of antibiotics, steroids, and breathing treatments. States that her symptoms continue to persist and she has had no relief with any medications. She has a history of asthma, but has never required hospitalization and states the symptoms have never been this bad. She is now having conversational dyspnea. Her cough is described as productive with large amounts of green sputum. Denies any associated chest pain. BUN is at 13 with a creatinine of 0.5. The echoes at 14.4 with hemoglobin 13.0. The viral screen was negative. Troponins are negative. D-dimer is at 0.52. Chest x-ray is clear. Review of Systems REVIEW OF SYSTEMS: CONSTITUTIONAL: No fever, no malaise, no fatigue. HEENT: No recent visual problems or hearing problems. Denied any sore throat. CARDIOVASCULAR: No chest pain, orthopnea, PND, no palpitations, no syncope. PULMONARY: No shortness of breath, no cough, no hemoptysis. GASTROINTESTINAL: No diarrhea, no nausea, no vomiting, no abdominal pain. NEUROLOGICAL: No headaches, no weakness, no numbness. HEMATOLOGICAL: Denies any bleeding or petechiae. GENITOURINARY: Denies any burning micturition, frequency, or urgency. MUSCULOSKELETAL/RHEUMATOLOGICAL: Denies any joint pain, swelling, or any muscle pain. ENDOCRINE: Denies any polyuria or polydipsia. The rest of the 14-point review of systems is negative. Past Medical History Past Medical History: Asthma Additional Past Medical History / Comment(s): Obstetric history: This is her first . She has had care with [facility] since 7 weeks. EDC is by a 7 week US. AB+, abs neg, Rub Imm, RPR NR, HEp B neg, HIV NR. Abnormal 1hr but normal 3hrGTT. normal anatomy US. GBS neg. 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 Past Anesthesia/Blood Transfusion Reactions: No Reported Reaction Past Psychological History: ADD/ADHD, Bipolar Smoking Status: Never smoker Past Alcohol Use History: Rare Past Drug Use History: None Reported - Past Family History Mother Additional Family Medical History / Comment(s): Biological mother has history of diabetes. Sister(s) Additional Family Medical History / Comment(s): Patient has one sister with hi story of ADD and possibly bipolar. Patient is one brother that she does not know any history on. Patient has 2 children with no major medical problems. Father Family Medical History: Diabetes Mellitus Additional Family Medical History / Comment(s): Patient does not know history on her father. Medications and Allergies Home Medications Medication Instructions Recorded Confirmed Type Albuterol Nebulized [Ventolin 2.5 mg INHALATION RT-QID PRN 06/21/23 06/21/23 History Nebulized] Albuterol Sulfate [Albuterol 2 puff PO RT-QID PRN 06/21/23 06/21/23 History Sulfate Hfa] Ascorbic Acid [Vitamin C] 500 mg PO HS 06/21/23 06/21/23 History Allergies Allergy/AdvReac Type Severity Reaction Status Date / Time methocarbamol [From Robaxin] AdvReac Rapid Verified 06/21/23 15:27 Heart Rate Milk Containing Products AdvReac upset Verified 06/21/23 15:27 [Dairy] stomach/constipation tramadol AdvReac Rapid Verified 06/21/23 15:27 Heart Rate Physical Exam Vitals: Vital Signs Temp Pulse Resp BP Pulse Ox 06/21/23 12:46 112 H 20 147/78 98 06/21/23 12:32 104 H 06/21/23 12:23 108 H 06/21/23 10:32 98.4 F 130 H 22 143/89 95 Intake and Output 06/20/23 06/21/23 06/21/23 22:59 06:59 14:59 Other: Weight 139.253 kg PHYSICAL EXAMINATION: GENERAL: The patient is alert and oriented x3, not in any acute distress. Well developed, well nourished. HEENT: Pupils are round and equally reacting to light. EOMI. No scleral icterus. No conjunctival pallor. Normocephalic, atraumatic. No pharyngeal erythema. No thyromegaly. CARDIOVASCULAR: S1 and S2 present. No murmurs, rubs, or gallops. PULMONARY: Chest is clear to auscultation, no wheezing or crackles. ABDOMEN: Soft, nontender, nondistended, normoactive bowel sounds. No palpable organomegaly. MUSCULOSKELETAL: No joint swelling or deformity. EXTREMITIES: No cyanosis, clubbing, or pedal edema. NEUROLOGICAL: Gross neurological examination did not reveal any focal deficits. SKIN: No rashes. Results CBC & Chem 7: 06/22/23 06:01 06/22/23 06:01 Labs: Abnormal Lab Results - Last 24 Hours (Table) 06/21/23 06/21/23 06/21/23 Range/Units 10:56 10:56 10:56 WBC 14.1 H (3.8-10.6) k/uL Neutrophils # 8.3 H (1.3-7.7) k/uL Eosinophils # 1.7 H (0-0.7) k/uL Sodium 136 L (137-145) mmol/L Glucose 152 H (74-99) mg/dL C-Reactive Protein 3.3 H (<1.0) mg/dL Assessment and Plan Assessment: Chronic bronchial asthma with recent exacerbation, improved Morbid obesity, body mass index of 52.7 with obvious features obstructive sleep apnea Hypoxemia, likely chronic, likely secondary to mitral atelectatic change in lung bases secondary to body habitus Leukocytosis Hyperglycemia; no history of diabetes Morbid obesity Start Patient on Symbicort maintenance 160/4 without post twice a day Ventolin rescue inhaler administered basis Weight loss Operation PFT Outpatient sleep study
--- NOTE | 2023-06-22 19:05 | P.PN ---
Subjective Progress Note Date: 06/22/23 32-year-old female who presents to the emergency department for coughing and difficulty breathing. Patient has been to urgent care several times over the last 3 weeks and has been on 3 rounds of antibiotics, steroids, and breathing treatments. States that her symptoms continue to persist and she has had no relief with any medications. She has a history of asthma, but has never required hospitalization and states the symptoms have never been this bad. She is now having conversational dyspnea. Her cough is described as productive with large amounts of green sputum. Denies any associated chest pain. BUN is at 13 with a creatinine of 0.5. The echoes at 14.4 with hemoglobin 13.0. The viral screen was negative. Troponins are negative. D-dimer is at 0.52. Chest x-ray is clear. Patient reports excessive bouts of coughing and shortness of breath with removal of oxygen; unable to walk to the bathroom without excessive shortness of breath -- We will add prednisone 50 mg daily Objective - Vital Signs Vital signs: Vital Signs Temp 97.5 F L 06/22/23 11:19 Pulse 106 H 06/22/23 11:19 Resp 18 06/22/23 11:19 BP 144/85 06/22/23 11:19 Pulse Ox 91 L 06/22/23 11:19 FiO2 Intake & Output 06/21/23 06/22/23 06/22/23 18:59 06:59 18:59 Weight 139.253 kg 139.253 kg Other: Voiding Method Toilet # Voids 1 - Exam PHYSICAL EXAMINATION: GENERAL: The patient is alert and oriented x3, not in any acute distress. Well developed, well nourished. HEENT: Pupils are round and equally reacting to light. EOMI. No scleral icterus. No conjunctival pallor. Normocephalic, atraumatic. No pharyngeal erythema. No thyromegaly. CARDIOVASCULAR: S1 and S2 present. No murmurs, rubs, or gallops. PULMONARY: Chest is clear to auscultation, no wheezing or crackles. ABDOMEN: Soft, nontender, nondistended, normoactive bowel sounds. No palpable organomegaly. MUSCULOSKELETAL: No joint swelling or deformity. EXTREMITIES: No cyanosis, clubbing, or pedal edema. NEUROLOGICAL: Gross neurological examination did not reveal any focal deficits. SKIN: No rashes. - Labs CBC & Chem 7: 06/22/23 06:01 06/22/23 06:01 Labs: Abnormal Lab Results - Last 24 Hours (Table) 06/21/23 06/22/23 06/22/23 Range/Units 10:56 06:01 07:40 Carbon Dioxide 20.0 L (21.6-31.8) mmol/L Anion Gap 14.00 H (4.00-12.00) mmol/L Creatinine 0.5 L (0.6-1.5) mg/dL BUN/Creatinine Ratio 26.60 H (12.00-20.00) Ratio Glucose 234 H (70-110) mg/dL POC Glucose (mg/dL) 243 H (70-110) mg/dL C-Reactive Protein 3.3 H (<1.0) mg/dL 06/22/23 Range/Units 11:22 Carbon Dioxide (21.6-31.8) mmol/L Anion Gap (4.00-12.00) mmol/L Creatinine (0.6-1.5) mg/dL BUN/Creatinine Ratio (12.00-20.00) Ratio Glucose (70-110) mg/dL POC Glucose (mg/dL) 232 H (70-110) mg/dL C-Reactive Protein (<1.0) mg/dL Assessment and Plan Assessment: Chronic bronchial asthma with recent exacerbation, improved Morbid obesity, body mass index of 52.7 with obvious features obstructive sleep apnea Hypoxemia, likely chronic, likely secondary to mitral atelectatic change in lung bases secondary to body habitus Leukocytosis Hyperglycemia; no history of diabetes Morbid obesity Start Patient on Symbicort maintenance 160/4 without post twice a day Ventolin rescue inhaler administered basis Weight loss Operation PFT Outpatient sleep study
[2023-06-22] MEDS: ASCORBIC ACID 500 MG TAB PO SCH (19:47)
[2023-06-22] MEDS: predniSONE 20 MG TAB PO SCH (19:47)
[2023-06-22] MEDS: ONDANSETRON 4 MG/2 ML VIAL IVP PRN (19:48)
[2023-06-22 20:11] LABS: Glucose,Whole Blood 231 mg/dL (70-110)
[2023-06-22] MEDS: SYMBICORT 160-4.5 MCG INHALER INHALATION SCH (20:32)
[2023-06-22] MEDS: INSULIN ASPART (NovoLOG) 100 UNIT/ML VIAL SQ SCH (21:34)
[2023-06-23 07:48] LABS: Glucose,Whole Blood 226 mg/dL (70-110)
[2023-06-23] MEDS: SYMBICORT 160-4.5 MCG INHALER INHALATION SCH ×2 (08:04→20:34)
[2023-06-23] MEDS: guaiFENesin-DM 600/30MG 1 EACH TAB.ER.12H PO SCH ×2 (08:46→20:54)
[2023-06-23] MEDS: predniSONE 20 MG TAB PO SCH (08:46)
[2023-06-23] MEDS: INSULIN ASPART (NovoLOG) 100 UNIT/ML VIAL SQ SCH ×4 (08:46→20:54)
[2023-06-23 10:29] LABS: Basophils # (A) 0.03 X 10*3/uL (0.00-0.10); Basophils % (A) 0.2 %; Eosinophils # (A) 0 X 10*3/uL (0.04-0.35); Eosinophils % (A) 0 %; HCT 34.2 % (37.2-46.3); HGB 11.3 d/dL (12.0-15.0); Lymphocytes # (A) 1.67 X 10*3/uL (0.90-5.00); Lymphocytes % (A) 13.7 %; MCH 28.8 pg (27.0-32.0); Mean Platelet Volume 11.1 FL (9.5-12.2); Monocytes # (A) 0.33 X 10*3/uL (0.20-1.00); Monocytes % (A) 2.7 %; NRBC Per 100 WBC 0 X 10*3/uL (0.00-0.01); Neutrophils # (A) 9.94 X 10*3/uL (1.80-7.70); Neutrophils % (A) 81.6 %; Platelet Count 353 X 10*3/uL (140-440); RBC 3.93 X 10*6/uL (4.10-5.20); RDW 16.3 % (11.5-14.5); WBC 12.19 X 10*3/uL (4.50-10.00)
[2023-06-23 10:34] LABS: Blood Urea Nitrogen 17.3 mg/dL (9.0-27.0); Calcium 9.1 mg/dL (8.7-10.3); Carbon Dioxide 20.8 mmol/L (21.6-31.8); Chloride 104 mmol/L (96-109); Glucose 248 mg/dL (70-110); Sodium 136 mmol/L (135-145)
[2023-06-23] MEDS: ONDANSETRON 4 MG/2 ML VIAL IVP PRN (11:23)
[2023-06-23 11:50] LABS: Glucose,Whole Blood 242 mg/dL (70-110)
[2023-06-23] MEDS: metFORMIN 500 MG TAB PO SCH ×2 (13:22→17:53)
[2023-06-23 17:08] LABS: Glucose,Whole Blood 254 mg/dL (70-110)
--- NOTE | 2023-06-23 17:54 | P.PN ---
Subjective Progress Note Date: 06/23/23 32-year-old female who presents to the emergency department for coughing and difficulty breathing. Patient has been to urgent care several times over the last 3 weeks and has been on 3 rounds of antibiotics, steroids, and breathing treatments. States that her symptoms continue to persist and she has had no relief with any medications. She has a history of asthma, but has never required hospitalization and states the symptoms have never been this bad. She is now having conversational dyspnea. Her cough is described as productive with large amounts of green sputum. Denies any associated chest pain. BUN is at 13 with a creatinine of 0.5. The echoes at 14.4 with hemoglobin 13.0. The viral screen was negative. Troponins are negative. D-dimer is at 0.52. Chest x-ray is clear. Patient reports excessive bouts of coughing and shortness of breath with removal of oxygen; unable to walk to the bathroom without excessive shortness of breath -- We will add prednisone 50 mg daily 06/23/2023 Patient is seen and evaluated resting in bed; reports improvement in breathing Vital signs are stable with temperature of 97.8, pulse 82, respiration 18 and blood pressure of 122/86 with O2 saturation 98% on room air Blood work reveals to be obese of 12.1, hemoglobin of 11.3 and platelet count of 353, sodium 136, potassium 5.0, BUN/creatinine of 17.3/0.5; blood glucose remains elevated above 250; CO2 low at 20.8; anion Close touch 11.2 - Patient running markedly elevated blood sugars resulting from prednisone use; reports she has been diagnosed with diabetes but not taking any medications as outpatient; concern about markedly elevated blood sugars given need for p rednisone - We will plan to continue prednisone for another 24 hours and discontinue if patient remains stable; patient has been placed on metformin 500 mg twice a day; she can be discharged without medication if blood sugar stabilizes after discontinuation of prednisone; patient has been cleared for discharge by pulmonary service Objective - Vital Signs Vital signs: Vital Signs Temp 98.1 F 06/23/23 07:07 Pulse 72 06/23/23 07:07 Resp 18 06/23/23 07:07 BP 104/65 06/23/23 07:07 Pulse Ox 92 L 06/23/23 07:07 FiO2 Intake & Output 06/22/23 06/23/23 06/23/23 18:59 06:59 18:59 Other: Voiding Method Toilet # Voids 2 - Exam PHYSICAL EXAMINATION: GENERAL: The patient is alert and oriented x3, not in any acute distress. Well developed, well nourished. HEENT: Pupils are round and equally reacting to light. EOMI. No scleral icterus. No conjunctival pallor. Normocephalic, atraumatic. No pharyngeal erythema. No thyromegaly. CARDIOVASCULAR: S1 and S2 present. No murmurs, rubs, or gallops. PULMONARY: Chest is clear to auscultation, no wheezing or crackles. ABDOMEN: Soft, nontender, nondistended, normoactive bowel sounds. No palpable organomegaly. MUSCULOSKELETAL: No joint swelling or deformity. EXTREMITIES: No cyanosis, clubbing, or pedal edema. NEUROLOGICAL: Gross neurological examination did not reveal any focal deficits. SKIN: No rashes. - Labs CBC & Chem 7: 06/23/23 05:33 06/23/23 05:33 Labs: Abnormal Lab Results - Last 24 Hours (Table) 06/22/23 06/22/23 06/22/23 Range/Units 06:01 17:14 20:10 WBC 15.27 H (4.50-10.00) X 10*3/uL RBC (4.10-5.20) X 10*6/uL Hgb 11.8 L (12.0-15.0) d/dL Hct 35.5 L (37.2-46.3) % RDW 15.5 H (11.5-14.5) % Neutrophils # 12.86 H (1.80-7.70) X 10*3/uL Eosinophils # 0 L (0.04-0.35) X 10*3/uL Carbon Dioxide (21.6-31.8) mmol/L Creatinine (0.6-1.5) mg/dL BUN/Creatinine Ratio (12.00-20.00) Ratio Glucose (70-110) mg/dL POC Glucose (mg/dL) 289 H 231 H (70-110) mg/dL 06/23/23 06/23/23 06/23/23 Range/Units 05:33 05:33 07:11 WBC 12.19 H (4.50-10.00) X 10*3/uL RBC 3.93 L (4.10-5.20) X 10*6/uL Hgb 11.3 L (12.0-15.0) d/dL Hct 34.2 L (37.2-46.3) % RDW 16.3 H (11.5-14.5) % Neutrophils # 9.94 H (1.80-7.70) X 10*3/uL Eosinophils # 0 L (0.04-0.35) X 10*3/uL Carbon Dioxide 20.8 L (21.6-31.8) mmol/L Creatinine 0.5 L (0.6-1.5) mg/dL BUN/Creatinine Ratio 34.60 H (12.00-20.00) Ratio Glucose 248 H (70-110) mg/dL POC Glucose (mg/dL) 226 H (70-110) mg/dL Microbiology - Last 24 Hours (Table) 06/22/23 13:44 Gram Stain - Preliminary Sputum Sputum Culture - Preliminary 06/21/23 12:46 Blood Culture Gram Stain - Preliminary Blood Blood Culture - Preliminary 06/21/23 12:36 Blood Culture - Preliminary Blood Assessment and Plan Assessment: Chronic bronchial asthma with recent exacerbation, improved Morbid obesity, body mass index of 52.7 with obvious features obstructive sleep apnea Hypoxemia, likely chronic, likely secondary to mitral atelectatic change in lung bases secondary to body habitus Leukocytosis Hyperglycemia; no history of diabetes Morbid obesity Start Patient on Symbicort maintenance 160/4 without post twice a day Ventolin rescue inhaler administered basis Weight loss Operation PFT Outpatient sleep study
[2023-06-23 20:26] LABS: Glucose,Whole Blood 216 mg/dL (70-110)
[2023-06-23] MEDS: ASCORBIC ACID 500 MG TAB PO SCH (20:54)
[2023-06-24 07:31] LABS: Glucose,Whole Blood 204 mg/dL (70-110)
[2023-06-24 07:41] VITALS: BP 92/62; PULSE 86; RESP 18; TEMP 98.6
[2023-06-24] MEDS: SYMBICORT 160-4.5 MCG INHALER INHALATION SCH (07:50)
[2023-06-24] MEDS: predniSONE 20 MG TAB PO SCH (08:21)
[2023-06-24] MEDS: INSULIN ASPART (NovoLOG) 100 UNIT/ML VIAL SQ SCH (08:21)
[2023-06-24] MEDS: metFORMIN 500 MG TAB PO SCH (08:21)
[2023-06-24] MEDS: guaiFENesin-DM 600/30MG 1 EACH TAB.ER.12H PO SCH (08:21)
[2023-06-24 10:59] LABS: HCT 34.6 % (37.2-46.3); HGB 11.3 d/dL (12.0-15.0); MCH 28.8 pg (27.0-32.0); MCHC 32.7 d/dL (32.0-37.0); MCV 88.3 FL (80.0-97.0); Mean Platelet Volume 10.7 FL (9.5-12.2); NRBC Per 100 WBC 0 X 10*3/uL (0.00-0.01); Platelet Count 338 X 10*3/uL (140-440); RBC 3.92 X 10*6/uL (4.10-5.20); RDW 16.2 % (11.5-14.5); WBC 14.48 X 10*3/uL (4.50-10.00)
[2023-06-24 11:08] LABS: Blood Urea Nitrogen 20.3 mg/dL (9.0-27.0); Carbon Dioxide 24.5 mmol/L (21.6-31.8); Chloride 107 mmol/L (96-109); Glucose 209 mg/dL (70-110); Potassium 4.4 mmol/L (3.5-5.5); Sodium 141 mmol/L (135-145)
[2023-06-24 12:03] LABS: Basophils # (M) 0 X 10*3/uL (0.00-0.10); Eosinophils # (M) 0 X 10*3/uL (0.04-0.35); Lymphocytes # (M) 4.05 X 10*3/uL (0.90-5.00); Monocytes # (M) 1.16 X 10*3/uL (0.20-1.00); Myelocytes % 1 % (0-0); Neutrophils # (M) 9.12 X 10*3/uL (1.80-7.70); Neutrophils % (M) 63 %; RBC Morphology Normal (Normal)
--- NOTE | 2023-06-24 23:28 | DS ---
DISCHARGE SUMMARY FINAL DIAGNOSES: 1. Bronchial asthma [id number] exacerbation. 2. Morbid obesity. 3. Leukocytosis. 4. Hyperglycemia. 5. Multiple medical issues. DISCHARGE DISPOSITION: The patient will be discharged in stable condition with guarded prognosis HISTORY OF PRESENT ILLNESS: This is a 32-year-old woman, who was admitted with bronchial asthma acute exacerbation. The patient was treated with bronchodilators. The patient improved significantly. Pulmonary saw the patient. PHYSICAL EXAMINATION: VITAL SIGNS: Stable. CARDIOVASCULAR: S1 and S2. RESPIRATORY: A few scattered rhonchi. The patient will be discharged in stable condition with guarded prognosis. Please refer to the discharge medication list for list of medications. I recommend tapering prednisone, Symbicort b.i.d., albuterol q.i.d. and nebulizer. Follow up with Dr. Chaudhary and Dr. Marcelo as recommended. FRANK / GAVINO: [id number] /
== END 2023-06-24 12:51 | disposition home or self-care (01) | DRG 140 ==
LOC: EC 10:30 → 5NMEDONC 14:00
PROVIDERS: ADMIT Internal Medicine; ATTEND Internal Medicine
DX: J44.1 Chronic obstructive pulmonary disease with (acute) exacerbation (principal); E66.01 Morbid (severe) obesity due to excess calories; R73.9 Hyperglycemia, unspecified; G47.33 Obstructive sleep apnea (adult) (pediatric); J98.11 Atelectasis; Z20.822 Contact with and (suspected) exposure to COVID-19; Z68.43 Body mass index [BMI] 50.0-59.9, adult; Z79.899 Other long term (current) drug therapy; Z87.09 Personal history of other diseases of the respiratory system; Z87.891 Personal history of nicotine dependence; Z91.011 Allergy to milk products; Z86.14 Personal history of Methicillin resistant Staphylococcus aureus infection
CPT/HCPCS: 36415; 71046; 80048; 80053; 82009; 83036; 83605; 84145; 84484; 84703; 85025; 85379; 85610; 85730; 86140; 87040; 87070; 87205; 87449; 87636; 93005; 94640; 96374; 99285

== ENCOUNTER 2023-08-08 19:15 | Outpatient (CLI) | payer OTHER | END 2023-08-09 06:00 | disposition home or self-care (01) | LOC: 3 N SLEEP 19:15 | PROVIDERS: ATTEND Internal Medicine Critical Care Medicine | DX: G47.10 Hypersomnia, unspecified (principal); Z91.011 Allergy to milk products; Z88.8 Allergy status to other drugs, medicaments and biological substances; Z88.5 Allergy status to narcotic agent | CPT/HCPCS: 95810 ==

== ENCOUNTER → 2023-11-11 | Outpatient (CLI) | payer OTHER ==
--- NOTE | 2023-11-11 10:51 | MM ---
Reason for Exam: Clinical finding. Baseline mammogram. Indicated Problems: Lump or thickening of the right side for 3 Day(s). Patient History: Menarche at age 14. First Full-Term at age 23. Last menstrual period: 11/07/2023 Prior Study Comparison: Patient's first Mammogram. No prior studies available for comparison. Tissue Density: The breast tissue is almost entirely fat. Findings: Analyzed By CAD. No finding to correlate with palpable abnormality. Overall Assessment: Incomplete: need additional imaging evaluation, BI-RAD 0 Management: Diagnostic Breast Ultrasound of the right breast. Results were given to the patient verbally at the time of exam. Patient should continue monthly self-breast exams. A clinical breast exam by your physician is recommended on an annual basis. This exam should not preclude additional follow-up of suspicious palpable abnormalities. Note on Franchesca scores and lifetime risk: 1. A Franchesca score greater than 3% is considered moderate risk. If this is the case, consider specialist referral to assess eligibility for a risk reducing agent. 2. If overall lifetime risk for the development of breast cancer is 20% or higher, the patient may qualify for future screening with alternating mammogram and breast MRI. Electronically signed and approved by: Dustin Batista DO
--- NOTE | 2023-11-11 11:14 | USB ---
Reason for Exam: Clinical finding. Patient History: Menarche at age 14. First Full-Term at age 23. Findings: The area of palpable concern of the right breast, the axilla of the right breast and the retroareolar of the right breast were scanned. Technique utilized:US breast limited RT Image; Ultrasound imaging of: All 4 quadrants, the retroareolar region and axilla. No evidence for organizing fluid collection or mass. No finding to correlate with palpable abnormality. Overall Assessment: Negative, BI-RAD 1 Management: Screening Mammogram of both breasts at age 42. A clinical breast exam by your physician is recommended on an annual basis and results should be correlated with mammographic findings. This exam should not preclude additional follow-up of suspicious palpable abnormalities. Results were given to the patient verbally at the time of exam. Electronically signed and approved by: Dustin Batista DO
== END | disposition home or self-care (01) ==
LOC: RADMAMWWP 10:03
PROVIDERS: ATTEND Internal Medicine Geriatric Medicine
DX: R92.313 Mammographic fatty tissue density, bilateral breasts (principal); N63.13 Unspecified lump in the right breast, lower outer quadrant
CPT/HCPCS: 77066; 76642; G0279; 77062

== ENCOUNTER 2024-06-23 17:09 | Emergency (ER) | payer OTHER ==
[2024-06-23 17:16] VITALS: RESP 18
[2024-06-23] MEDS ORDERED: MECLIZINE 12.5 MG TAB PO STA (17:26)
--- NOTE | 2024-06-23 17:30 | ED ---
Dizziness HPI - General Chief Complaint: Dizziness Stated Complaint: Dizziness Time Seen by Provider: 06/23/24 17:28 Source: patient, RN notes reviewed Mode of arrival: ambulatory Limitations: no limitations - History of Present Illness Initial Comments: 33-year-old female presented to the ER with a chief complaint of dizziness. Patient states for the past week she has been feeling unwell and fatigue. She states she has a pressure in her sinuses and a headache. She reports mild congestion. She states her dizziness is as if the room is spinning. Patient does have a history of pseudotumor cerebri and vertigo. Patient states when she had pseudotumor cerebri she was having visual disturbances, nausea and vomiting. States this feels different. Patient reports she is also been having intermittent diarrhea. Denies any melena or hematochezia. Patient is taking [id number] Imodium for diarrhea with only minor relief. Patient denies any visual disturbances, urinary complaints, nausea, vomiting, chest pain, palpitations, shortness of breath or peripheral edema. - Related Data Home Medications Medication Instructions Recorded Confirmed Albuterol Sulfate [Albuterol 2 puff PO RT-QID PRN 06/21/23 06/21/23 Sulfate Hfa] Ascorbic Acid [Vitamin C] 500 mg PO HS 06/21/23 06/21/23 Previous Rx's Medication Instructions Recorded Acetaminophen Tab [Tylenol] 650 mg PO Q6HR PRN tab 06/24/23 Albuterol Nebulized [Ventolin 2.5 mg INHALATION RT-QID #0 06/24/23 Nebulized] Budesonide-Formot 160-4.5 Mcg 2 puff INHALATION RT-BID 30 Days 06/24/23 [Symbicort 160-4.5 Mcg Inhaler] #1 each guaiFENesin-DM 600/30MG [Mucinex 2 each PO Q12HR 10 Days #20 tab 06/24/23 Dm] metFORMIN HCL [Glucophage] 500 mg PO BID-W/MEALS #60 tab 06/24/23 predniSONE 10 mg PO DIRECTED #30 tab 06/24/23 Cephalexin [Keflex] 500 mg PO Q12HR 1 Days #14 cap 06/23/24 Meclizine [Antivert] 25 mg PO BID #20 tab 06/23/24 Allergies Allergy/AdvReac Type Severity Reaction Status Date / Time methocarbamol [From Robaxin] AdvReac Rapid Verified 06/23/24 17:16 Heart Rate Milk Containing Products AdvReac upset Verified 06/23/24 17:16 (Dairy) stomach/constipation [Dairy] tramadol AdvReac Rapid Verified 06/23/24 17:16 Heart Rate Review of Systems ROS Statement: Those systems with pertinent positive or pertinent negative responses have been documented in the HPI. ROS Other: All systems not noted in ROS Statement are negative. Past Medical History Past Medical History: Asthma Additional Past Medical History / Comment(s): Obstetric history: This is her first . She has had care with me since 7 weeks. EDC is by a 7 week US. AB+, abs neg, Rub Imm, RPR NR, HEp B neg, HIV NR. Abnormal 1hr but normal 3hrGTT. normal anatomy US. GBS neg. 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 Past Anesthesia/Blood Transfusion Reactions: No Reported Reaction Past Psychological History: ADD/ADHD, Bipolar Smoking Status: Never smoker Past Alcohol Use History: Rare Past Drug Use History: None Reported - Past Family History Mother Additional Family Medical History / Comment(s): Biological mother has history of diabetes. Sister(s) Additional Family Medical History / Comment(s): Patient has one sister with history of ADD and possibly bipolar. Patient is one brother that she does not know any history on. Patient has 2 children with no major medical problems. Father Family Medical History: Diabetes Mellitus Additional Family Medical History / Comment(s): Patient does not know history on her father. General Exam Limitations: no limitations General appearance: alert, in no apparent distress Respiratory exam: Present: normal lung sounds bilaterally. Absent: respiratory distress, wheezes, rales, rhonchi, stridor Cardiovascular Exam: Present: regular rate, normal rhythm, normal heart sounds. Absent: systolic murmur, diastolic murmur, rubs, gallop, clicks GI/Abdominal exam: Present: soft, tenderness (Left-sided), normal bowel sounds. Absent: distended, guarding, rebound, rigid Neurological exam: Present: alert, oriented X3, CN II-XII intact Skin exam: Present: warm, dry, intact, normal color. Absent: rash Course Vital Signs 06/23/24 06/23/24 17:11 20:12 Temperature 97.7 F 97.9 F Pulse Rate 106 H 83 Respiratory 18 18 Rate Blood Pressure 99/80 120/75 O2 Sat by Pulse 98 100 Oximetry EKG Findings - EKG Comments: EKG Findings:: EKG taken at 17: 47 showing a sinus rhythm. No ST segment elevations or depressions. T wave inversion in lead III and V3. Normal axis. Ventricular rate 93, UT interval 150, QRS duration 103, QT/QTc 336/386. Medical Decision Making - Medical Decision Making Was pt. sent in by a medical professional or institution (, PA, [employer], urgent care, hospital, or [place] health [place] facility...) When possible be specific @ -No Did you speak to anyone other than the patient for history (EMS, parent, family, police, friend...)? What history was obtained from this source @ -No Did you review nursing and triage notes (agree or disagree)? Why? @ -I reviewed and agree with nursing and triage notes Were old charts reviewed (outside hosp., previous admission, EMS record, old EKG, old radiological studies, urgent care reports/EKG's, [place] health care facility records)? Report findings @ -No old charts were reviewed Differential Diagnosis (chest pain, altered mental status, abdominal pain women, abdominal pain men, vaginal bleeding, weakness, fever, dyspnea, syncope, headache, dizziness, GI bleed, back pain, seizure, CVA, palpatations, mental he alth, musculoskeletal)? @ -Differential Dizziness:Benign paroxysmal positional Vertigo, Meniere's disease, otitis media, acoustic neuroma, vertebrobasilar insufficiency, cerebellar stroke, encephalitis, hypovolemic, arrhythmia, coronary artery syndrome, anemia, this is not meant to be an all-inclusive list EKG interpreted by me (3pts min.). @ -As above X-rays interpreted by me (1pt min.). @ -Chest x-ray interpreted by me negative for acute cardiopulmonary process. CT interpreted by me (1pt min.). @ -CTA chest negative for acute pulmonary embolism. U/S interpreted by me (1pt. min.). @ -None done What testing was considered but not performed or refused? (CT, X-rays, U/S, labs)? Why? @ -None What meds were considered but not given or refused? Why? @ -None Did you discuss the management of the patient with other professionals (professionals i.e. , PA, [employer], lab, RT, psych nurse, social service technician, turf sales person, teacher, project officer, patient case manager)? Give summary @ -No Was smoking cessation discussed for >3mins.? @ -No Was critical care preformed (if so, how long)? @ -No Were there social determinants of health that impacted care today? How? (Homelessness, low income, unemployed, alcoholism, drug addiction, transportation, low edu. Level, literacy, decrease access to med. care, senior care, rehab)? @ -No Was there de-escalation of care discussed even if they declined (Discuss DNR or withdrawal of care, Hospice)? DNR status @ -No What co-morbidities impacted this encounter? (DM, HTN, Smoking, COPD, CAD, Cancer, CVA, ARF, Chemo, Hep., AIDS, mental health diagnosis, sleep apnea, morb id obesity)? @ -Hx vertigo, Hx pseudotumor cerebri Was patient admitted / discharged? Hospital course, mention meds given and route, prescriptions, significant lab abnormalities, going to OR and other pertinent info. @ -Discharge. 33 year old female presenting to the ER with a chief complaint of dizziness. History and physical exam completed. Vitals upon arrival Remarkable for temperature 97.7, heart rate 106, respiratory 18, blood pressure 99/80, oxygen saturation 98% on room air. Patient in no signs of acute distress and nontoxic-appearing. Exam benign. Unremarkable. Sodium 139, testing 4.2, chloride 109, carbon dioxide 20. Troponin less than 0.012. D-dimer elevated at 0.65. Chest x-ray interpreted me negative for acute cardiopulmonary process. Due to elevated D-dimer CTA chest rule out PE was ordered. This is negative. Viral swab negative. Urinalysis concerning of infection with 12 WBCs large leukocyte esterases and occasional bacteria. Stable liter IV fluids and meclizine for symptom control in the ER. Symptoms believed to be vertigo and/or viral in nature. Upon reevaluation, patient resting comfortably on stretcher in no signs of acute distress. Pain improvement of symptoms. Results discussed with patient, all questions answered. Patient is agreeable and feels safe for discharge home. Strict return parameters discussed. Advise close follow-up wi PCP and neurology. Meclizine and keflex prescribed. Patient discharged in stable condition. Patient verbally expressed understanding and agreement care plan. Case discussed with ED attending, Dr. Norris. Undiagnosed new problem with uncertain prognosis? @ -No Drug Therapy requiring intensive monitoring for toxicity (Heparin, Nitro, Insulin, Cardizem)? @ -No Were any procedures done? @ -No Diagnosis/symptom? @ -UTI/dizziness Acute, or Chronic, or Acute on Chronic? @ -Acute Uncomplicated (without systemic symptoms) or Complicated (systemic symptoms)? @ -Complicated Side effects of treatment? @ -No Exacerbation, Progression, or Severe Exacerbation? @ -No Poses a threat to life or bodily function? How? (Chest pain, [place], [place], pneumonia, PE, COPD, DKA, ARF, appy, cholecystitis, CVA, Diverticulitis, Homicidal, Suicidal, threat to staff... and all critical care pts) @ -No - Lab Data Result diagrams: 06/23/24 17:35 06/23/24 17:35 Lab Results 06/23/24 06/23/24 06/23/24 Range/Units 17:35 17:35 17:35 WBC 7.5 (3.8-10.6) k/uL RBC 4.51 (3.80-5.40) m/uL Hgb 11.9 (11.4-16.0) gm/dL Hct 38.5 (34.0-46.0) % MCV 85.4 (80.0-100.0) fL MCH 26.4 (25.0-35.0) pg MCHC 31.0 (31.0-37.0) g/dL RDW 15.2 (11.5-15.5) % Plt Count 354 (150-450) k/uL MPV 7.8 Neutrophils % 68 % Lymphocytes % 23 % Monocytes % 5 % Eosinophils % 3 % Basophils % 0 % Neutrophils # 5.1 (1.3-7.7) k/uL Lymphocytes # 1.7 (1.0-4.8) k/uL Monocytes # 0.4 (0-1.0) k/uL Eosinophils # 0.2 (0-0.7) k/uL Basophils # 0.0 (0-0.2) k/uL Hypochromasia Moderate PT 10.4 (10.0-12.5) sec INR 0.9 (<1.2) APTT 29.7 (22.0-30.0) sec D-Dimer 0.65 H (<0.60) mg/L FEU Sodium 139 (137-145) mmol/L Potassium 4.2 (3.5-5.1) mmol/L Chloride 109 H (98-107) mmol/L Carbon Dioxide 20 L (22-30) mmol/L Anion Gap 10 mmol/L BUN 11 (7-17) mg/dL Creatinine 0.67 (0.52-1.04) mg/dL Est GFR (CKD-EPI)AfAm >90 (>60 ml/min/1.73 sqM) Est GFR (CKD-EPI)NonAf >90 (>60 ml/min/1.73 sqM) Glucose 85 (74-99) mg/dL Calcium 9.2 (8.4-10.2) mg/dL Total Bilirubin 0.5 (0.2-1.3) mg/dL AST 28 (14-36) U/L ALT 34 (4-34) U/L Alkaline Phosphatase 99 (38-126) U/L Troponin I (0.000-0.034) ng/mL Total Protein 6.4 (6.3-8.2) g/dL Albumin 3.9 (3.5-5.0) g/dL Urine Color Urine Appearance (Clear) Urine pH (5.0-8.0) Ur Specific [place] (1.001-1.035) Urine Protein (Negative) Urine Glucose (UA) (Negative) Urine Ketones (Negative) Urine Blood (Negative) Urine Nitrite (Negative) Urine Bilirubin (Negative) Urine Urobilinogen (<2.0) mg/dL Ur Leukocyte Esterase (Negative) Urine WBC (0-5) /hpf Ur Squamous Epith Cells (0-4) /hpf Calcium Oxalate Crystal (None) /hpf Urine Bacteria (None) /hpf Urine Mucus (None) /hpf Urine HCG, Qual (Not Detectd) Influenza Type A (PCR) (Not Detectd) Influenza Type B (PCR) (Not Detectd) RSV (PCR) (Not Detectd) SARS-CoV-2 (PCR) (Not Detectd) 06/23/24 06/23/24 06/23/24 Range/Units 17:35 17:52 17:52 WBC (3.8-10.6) k/uL RBC (3.80-5.40) m/uL Hgb (11.4-16.0) gm/dL Hct (34.0-46.0) % MCV (80.0-100.0) fL MCH (25.0-35.0) pg MCHC (31.0-37.0) g/dL RDW (11.5-15.5) % Plt Count (150-450) k/uL MPV Neutrophils % % Lymphocytes % % Monocytes % % Eosinophils % % Basophils % % Neutrophils # (1.3-7.7) k/uL Lymphocytes # (1.0-4.8) k/uL Monocytes # (0-1.0) k/uL Eosinophils # (0-0.7) k/uL Basophils # (0-0.2) k/uL Hypochromasia PT (10.0-12.5) sec INR (<1.2) APTT (22.0-30.0) sec D-Dimer (<0.60) mg/L FEU Sodium (137-145) mmol/L Potassium (3.5-5.1) mmol/L Chloride (98-107) mmol/L Carbon Dioxide (22-30) mmol/L Anion Gap mmol/L BUN (7-17) mg/dL Creatinine (0.52-1.04) mg/dL Est GFR (CKD-EPI)AfAm (>60 ml/min/1.73 sqM) Est GFR (CKD-EPI)NonAf (>60 ml/min/1.73 sqM) Glucose (74-99) mg/dL Calcium (8.4-10.2) mg/dL Total Bilirubin (0.2-1.3) mg/dL AST (14-36) U/L ALT (4-34) U/L Alkaline Phosphatase (38-126) U/L Troponin I <0.012 (0.000-0.034) ng/mL Total Protein (6.3-8.2) g/dL Albumin (3.5-5.0) g/dL Urine Color Yellow Urine Appearance Turbid H (Clear) Urine pH 5.5 (5.0-8.0) Ur Specific [place] 1.027 (1.001-1.035) Urine Protein 1+ H (Negative) Urine Glucose (UA) Negative (Negative) Urine Ketones Negative (Negative) Urine Blood Negative (Negative) Urine Nitrite Negative (Negative) Urine Bilirubin Negative (Negative) Urine Urobilinogen 2.0 (<2.0) mg/dL Ur Leukocyte Esterase Large H (Negative) Urine WBC 34 H (0-5) /hpf Ur Squamous Epith Cells 12 H (0-4) /hpf Calcium Oxalate Crystal Occasional H (None) /hpf Urine Bacteria Occasional H (None) /hpf Urine Mucus Many H (None) /hpf Urine HCG, Qual Not Detected (Not Detectd) Influenza Type A (PCR) (Not Detectd) Influenza Type B (PCR) (Not Detectd) RSV (PCR) (Not Detectd) SARS-CoV-2 (PCR) (Not Detectd) 06/23/24 Range/Units 17:57 WBC (3.8-10.6) k/uL RBC (3.80-5.40) m/uL Hgb (11.4-16.0) gm/dL Hct (34.0-46.0) % MCV (80.0-100.0) fL MCH (25.0-35.0) pg MCHC (31.0-37.0) g/dL RDW (11.5-15.5) % Plt Count (150-450) k/uL MPV Neutrophils % % Lymphocytes % % Monocytes % % Eosinophils % % Basophils % % Neutrophils # (1.3-7.7) k/uL Lymphocytes # (1.0-4.8) k/uL Monocytes # (0-1.0) k/uL Eosinophils # (0-0.7) k/uL Basophils # (0-0.2) k/uL Hypochromasia PT (10.0-12.5) sec INR (<1.2) APTT (22.0-30.0) sec D-Dimer (<0.60) mg/L FEU Sodium (137-145) mmol/L Potassium (3.5-5.1) mmol/L Chloride (98-107) mmol/L Carbon Dioxide (22-30) mmol/L Anion Gap mmol/L BUN (7-17) mg/dL Creatinine (0.52-1.04) mg/dL Est GFR (CKD-EPI)AfAm (>60 ml/min/1.73 sqM) Est GFR (CKD-EPI)NonAf (>60 ml/min/1.73 sqM) Glucose (74-99) mg/dL Calcium (8.4-10.2) mg/dL Total Bilirubin (0.2-1.3) mg/dL AST (14-36) U/L ALT (4-34) U/L Alkaline Phosphatase (38-126) U/L Troponin I (0.000-0.034) ng/mL Total Protein (6.3-8.2) g/dL Albumin (3.5-5.0) g/dL Urine Color Urine Appearance (Clear) Urine pH (5.0-8.0) Ur Specific [place] (1.001-1.035) Urine Protein (Negative) Urine Glucose (UA) (Negative) Urine Ketones (Negative) Urine Blood (Negative) Urine Nitrite (Negative) Urine Bilirubin (Negative) Urine Urobilinogen (<2.0) mg/dL Ur Leukocyte Esterase (Negative) Urine WBC (0-5) /hpf Ur Squamous Epith Cells (0-4) /hpf Calcium Oxalate Crystal (None) /hpf Urine Bacteria (None) /hpf Urine Mucus (None) /hpf Urine HCG, Qual (Not Detectd) Influenza Type A (PCR) Not Detected (Not Detectd) Influenza Type B (PCR) Not Detected (Not Detectd) RSV (PCR) Not Detected (Not Detectd) SARS-CoV-2 (PCR) Not Detected (Not Detectd) - Radiology Data Radiology results: report reviewed, image reviewed Disposition Clinical Impression: Dizziness, UTI (urinary tract infection) Disposition: HOME SELF-CARE Condition: Stable Instructions (If sedation given, give patient instructions): Dizziness (ED) Additional Instructions: Please follow-up with neurology. I also recommend follow-up with PCP next 1 to 2 days. Complete full course of antibiotics. Return to the ER for any new or worsening concerns. [facility] Prescriptions: Meclizine [Antivert] 25 mg PO BID #20 tab Cephalexin [Keflex] 500 mg PO Q12HR 1 Days #14 cap Is patient prescribed a controlled substance at d/c from ED?: No Referrals: Frederic Chaudhary MD [Primary Care Provider] - 1-2 days Time of Disposition: 20:02
[2024-06-23 18:06] LABS: Basophils % (A) 0 %; Eosinophils # (A) 0.2 k/uL (0-0.7); Eosinophils % (A) 3 %; HCT 38.5 % (34.0-46.0); HGB 11.9 gm/dL (11.4-16.0); Hypochromasia Moderate; Lymphocytes # (A) 1.7 k/uL (1.0-4.8); Lymphocytes % (A) 23 %; MCH 26.4 pg (25.0-35.0); MCV 85.4 fL (80.0-100.0); Mean Platelet Volume 7.8; Monocytes # (A) 0.4 k/uL (0-1.0); Monocytes % (A) 5 %; Neutrophils # (A) 5.1 k/uL (1.3-7.7); Neutrophils % (A) 68 %; Platelet Count 354 k/uL (150-450); RBC 4.51 m/uL (3.80-5.40); RDW 15.2 % (11.5-15.5); WBC 7.5 k/uL (3.8-10.6)
[2024-06-23] MEDS: MECLIZINE 25 MG TAB PO STA (18:11)
[2024-06-23 18:12] LABS: Appearance,Urine Turbid (Clear); Bacteria,Urine Occasional /hpf; Bilirubin,Urine Negative (Negative); Blood,Urine Negative (Negative); Calcium Oxalate Crystals,Urine Occasional /hpf; Color,Urine Yellow; Glucose,Urine (UA) Negative (Negative); Ketones,Urine Negative (Negative); Leukocyte Esterase,Urine Large (Negative); Mucus,Urine Many /hpf; Nitrite,Urine Negative (Negative); PH, Urine 5.5 (5.0-8.0); Protein,Urine 1+ (Negative); Specific Gravity,Urine 1.027 (1.001-1.035); Squamous Epithelial Cell,Urine 12 /hpf (0-4); WBC,Urine 34 /hpf (0-5)
[2024-06-23] MEDS: SODIUM CHLORIDE 0.9% 1,000 ML IV STA (18:12)
[2024-06-23 18:16] LABS: ALT 34 U/L (4-34); AST 28 U/L (14-36); African American GFR (CKD) >90 (>60 ml/min/1.73 sqM); Albumin 3.9 g/dL (3.5-5.0); Alkaline Phosphatase 99 U/L (38-126); Anion Gap 10 mmol/L; Blood Urea Nitrogen 11 mg/dL (7-17); Calcium 9.2 mg/dL (8.4-10.2); Carbon Dioxide 20 mmol/L (22-30); Chloride 109 mmol/L (98-107); Glucose 85 mg/dL (74-99); Non-African American GFR(CKD) >90 (>60 ml/min/1.73 sqM); Potassium 4.2 mmol/L (3.5-5.1); Sodium 139 mmol/L (137-145); Total Bilirubin 0.5 mg/dL (0.2-1.3); Total Protein 6.4 g/dL (6.3-8.2)
[2024-06-23 18:20] LABS: INR 0.9 (<1.2); Partial Thromboplastin Time 29.7 sec (22.0-30.0); Prothrombin Time 10.4 sec (10.0-12.5)
--- NOTE | 2024-06-23 18:43 | XR ---
EXAMINATION TYPE: XR chest 2V DATE OF EXAM: 06/23/2024 COMPARISON: 06/21/2023 INDICATION: Vertigo and dizziness TECHNIQUE: Frontal and lateral views of the chest are obtained. FINDINGS: The heart size is normal. The pulmonary vasculature is normal. The lungs are clear. IMPRESSION: 1. No acute pulmonary process. [facility], Workstation: 3, 06/23/2024 6:41 PM
--- NOTE | 2024-06-23 19:25 | CT ---
CTA CHEST EXAMINATION TYPE: CT chest angio for PE DATE OF EXAM: 06/23/2024 INDICATION: Dizziness and elevated d-dimer CT DLP: 658.3 mGycm, Automated exposure control for dose reduction was used. CONTRAST: Patient injected with 100 ml mL of Isovue 370. COMPARISON: None TECHNIQUE: CT of the chest is performed on a spiral scan at 2 mm thick sections. Study is performed with intravenous contrast timed for evaluation for pulmonary embolism. This will limit additional po rtions of the evaluation. 3-D MIP images reconstructed by the technologist are reviewed on the compu ter in the coronal and sagittal planes. FINDINGS: No persistent filling defects are evident to suggest an acute pulmonary embolism. No mediastinal or hilar adenopathy enlarged by CT criteria is evident. The ascending aorta diameter at the level of the main pulmonary artery is 2.9 cm. The main pulmonary artery diameter at the bifurcation is 2.5 cm. Lung windows are clear. Limited CT sections were through the upper abdomen. Cholelithiasis present. IMPRESSION: 1. No acute pulmonary embolism. 2. No acute pulmonary process. [facility], , 06/23/2024 7:23 PM
[2024-06-23 20:14] VITALS: BP 120/75; PULSE 83; TEMP 97.9
== END 2024-06-23 20:14 | disposition home or self-care (01) ==
LOC: EC 17:09
DX: R42 Dizziness and giddiness
CPT/HCPCS: 36415; 71046; 71275; 80053; 81001; 81025; 84484; 85025; 85379; 85610; 85730; 87086; 87636; 93005; 96360; 99284

== ENCOUNTER → 2025-04-07 | Outpatient (CLI) | payer OTHER ==
[2025-04-07 18:39] LABS: Basophils # (A) 0.06 X 10*3/uL (0.00-0.10); Basophils % (A) 0.6 %; Eosinophils # (A) 0.23 X 10*3/uL (0.04-0.35); Eosinophils % (A) 2.2 %; HCT 40.2 % (37.2-46.3); HGB 12.6 g/dL (12.0-15.0); Immature Grans, Automated 0.70 %; Lymphocytes # (A) 2.74 X 10*3/uL (0.90-5.00); Lymphocytes % (A) 26.4 %; MCH 28.8 pg (27.0-32.0); MCHC 31.3 g/dL (32.0-37.0); MCV 92.0 FL (80.0-97.0); Monocytes # (A) 0.60 X 10*3/uL (0.20-1.00); Monocytes % (A) 5.8 %; NRBC Per 100 WBC 0 X 10*3/uL (0.00-0.01); Neutrophils # (A) 6.69 X 10*3/uL (1.80-7.70); Neutrophils % (A) 64.3 %; Platelet Count 388 X 10*3/uL (140-440); RBC 4.37 X 10*6/uL (4.10-5.20); RDW 14.1 % (11.5-14.5); WBC 10.39 X 10*3/uL (4.50-10.00)
[2025-04-07 18:52] LABS: ALT 31 U/L (8-44); AST 27 U/L (13-35); Albumin 4.0 g/dL (3.8-4.9); Albumin/Globulin Ratio 1.74 Ratio (1.60-3.17); Alkaline Phosphatase 114 U/L (41-126); Anion Gap 11.80 mmol/L (4.00-12.00); BUN/Creat Ratio 25.40 Ratio (12.00-20.00); Blood Urea Nitrogen 12.7 mg/dL (9.0-27.0); Calcium 9.1 mg/dL (8.7-10.3); Carbon Dioxide 23.2 mmol/L (21.6-31.8); Chloride 107 mmol/L (96-109); Globulin 2.3 g/dL (1.6-3.3); Glucose 101 mg/dL (70-110); Potassium 4.2 mmol/L (3.5-5.5); Sodium 142 mmol/L (135-145); Total Protein 6.3 g/dL (6.2-8.2)
== END | disposition home or self-care (01) ==
LOC: LABWHC1 14:03
PROVIDERS: ATTEND Physician Assistant
DX: L40.0 Psoriasis vulgaris (principal)
CPT/HCPCS: 36415; 80053; 85025; 86480